=== PATIENT | female | born 1955 | race Caucasian/White ===

== ENCOUNTER 2020-02-25 15:26 | Outpatient (CLI) | payer MEDICARE, SELFPAY ==
--- NOTE | ~2020-02-25 | XR_ITS ---
XR lumbar spine 2-3V DATE: 02/25/2020 16:43 INDICATION: Low back pain radiating to right side for one month. No injury. TECHNIQUE: AP, lateral and coned lateral lumbosacral standing views COMPARISON: None FINDINGS: Diffuse osteopenia. There is [id number] anterior wedge compression fracture deformity of T11. There is mild degenerative disc disease at L1-2. There is mild degenerative spurring in the lower thoracic and lumbar spine. There is prominent degenerative disc disease and mild retrolisthesis at L2-3. There is moderately severe degenerative disc disease at L3-4. No lumbar spine fracture or bone destruction is evident. The lumbar pedicles are intact. The sacroiliac joints appear normal. IMPRESSION: [id number]-fljgynek T11 compression fracture, likely chronic Multilevel degenerative disc disease, most pronounced at L2-3 where there is mild retrolisthesis and at L3-4 Reviewed, dictated and finalized at location A. IMPRESSION: [id number] T11 compression fracture, likely chronic Multilevel degenerative disc disease, most pronounced at L2-3 where there is mi ld retrolisthesis and at L3-4
--- NOTE | ~2020-02-25 | XR_ITS ---
EXAMINATION: XR ribs RT 2V EXAM DATE: 02/25/2020 16:45 INDICATION: Swallowed bottle cap rating. Right lower rib pain. TECHNIQUE: Frontal projection of the upper right ribs, frontal projection of the lower right ribs, ob lique projection of the right ribs, without chest x-ray(s) for interpretation. Correlation is made to chest x-ray 12/15/2018. FINDINGS: There is no right rib cortical discontinuity, no evidence of acute fracture. No radiopaque foreign bodies identified aside from cholecystectomy clips. There are mild bony degenerative changes. IMPRESSION: No suspicious right rib findings. Reviewed, dictated and finalized at location G.
--- NOTE | ~2020-02-25 | XR_ITS ---
XR thoracic spine 3V DATE: 02/25/2020 16:43 INDICATION: Back pain radiating to right side TECHNIQUE: AP, lateral and swimmer views COMPARISON: None FINDINGS: There is mild anterolisthesis and moderate degenerative disease at approximately C4-5 and s evere degenerative disc disease at C5-6 and C6-7. There is diffuse osteopenia. There is mild to moderate anterior wedge compression fracture deformity, likely chronic, at T11. Othe rwise no fracture or bone destruction is evident. The thoracic pedicles are intact. No paraspinal sof t tissue thickening. Surgical clips overlie the right lower quadrant, likely due to cholecystectomy. IMPRESSION: Diffuse osteopenia Moderate moderate anterior wedge compression fracture deformity, likely chronic, at T11 Mild degenerative spurring of the thoracic spine Degenerative changes of the lower cervical spine Reviewed, dictated and finalized at location A. IMPRESSION: Diffuse osteopenia Moderate moderate anterior wedge compression fracture deformity, likely chronic , at T11 Mild degenerative spurring of the thoracic spine Degenerative changes of the lower cervical spine
== END 2020-02-25 15:27 | disposition home or self-care (01) ==
DX: M48.54XA Collapsed vertebra, not elsewhere classified, thoracic region, initial encounter for fracture (principal); M51.36 Other intervertebral disc degeneration, lumbar region; M85.88 Other specified disorders of bone density and structure, other site
CPT/HCPCS: 71100; 72072; 72100

== ENCOUNTER → 2020-08-24 10:03 | Outpatient (CLI) | payer MEDICARE, SELFPAY ==
[2020-08-24 14:02] LABS: Influenza Control Positive
[2020-08-25 16:27] LABS: SARS-CoV-2 RNA PCR Negative
== END ==
PROVIDERS: PCP Family Medicine; Visit Provider Nurse Practitioner Family
DX: Z20.822 Contact with and (suspected) exposure to COVID-19 (principal); R68.89 Other general symptoms and signs
CPT/HCPCS: 87804; C9803; U0003; U0005

== ENCOUNTER 2020-09-02 08:28 | Outpatient (CLI) | payer MEDICARE, SELFPAY ==
[2020-09-02 09:01] LABS: Basophils Absolute Auto 0.1 K/mm3 (0.0-0.1); Basophils Percent Auto 0.4 % (0.2-1.2); Eosinophils Absolute Auto 0.5 K/mm3 (0-0.3); Eosinophils Percent Auto 3.7 % (0-4.4); Hematocrit 43.9 % (37.0-47.0); Hemoglobin 14.4 g/dL (12.0-15.0); Immature Granulocyte Absolute 0.03 K/mm3 (0.00-0.031); Immature Granulocyte Percent A 0.2 % (0-0.5); Lymphocytes Absolute Auto 2.06 K/mm3 (0.9-3.2); Lymphocytes Percent Auto 16.6 % (18.3-44.2); Mean Corpuscular HGB Conc 32.8 g/dl (32-36); Mean Corpuscular Hemoglobin 30.2 pg (26-34); Mean Platelet Volume 9.9 fl (7.4-10.4); Monocytes Percent Auto 7.7 % (2.6-8.5); Neutrophils Absolute Auto 8.8 K/mm3 (1.3-6.7); Neutrophils Percent Auto 71.4 % (45.5-73.1); Platelet Count Result 375 k/mm3 (150-375); Red Blood Count 4.77 M/mm3 (4.2-5.4); White Blood Count 12.4 K/mm3 (4.5-10.0)
== END 2020-09-02 08:29 | disposition home or self-care (01) ==
PROVIDERS: PCP Family Medicine; Visit Provider Nurse Practitioner Family
DX: D72.829 Elevated white blood cell count, unspecified (principal)
CPT/HCPCS: 0001A; 36415; 85025; 91300

== ENCOUNTER 2020-09-02 14:48 | Outpatient (CLI) | payer MEDICARE, SELFPAY | END 2020-09-02 14:49 | disposition home or self-care (01) | LOC: ANHCOVIDVC 14:49 | PROVIDERS: PCP Family Medicine | DX: Z23 Encounter for immunization (principal) | CPT/HCPCS: 0001A; 91300 ==

== ENCOUNTER → 2020-11-09 06:44 | Outpatient (CLI) | payer MEDICARE, SELFPAY ==
[2020-11-10 17:40] LABS: SARS-CoV-2 RNA PCR Negative
== END ==
PROVIDERS: PCP Family Medicine; Visit Provider Nurse Practitioner Family
DX: R68.89 Other general symptoms and signs (principal); Z20.822 Contact with and (suspected) exposure to COVID-19
CPT/HCPCS: C9803; U0003; U0005

== ENCOUNTER → 2020-11-16 10:41 | Outpatient (CLI) | payer MEDICARE, SELFPAY ==
--- NOTE | ~2020-11-16 | XR_ITS ---
EXAMINATION: XR chest 2V DATE: 11/16/2020 10:55 INDICATION: Cough. TECHNIQUE: Frontal and lateral views of the chest were obtained. COMPARISON: Chest 2 views 12/15/2018 FINDINGS: The chest demonstrates clear lungs without pneumonia, pleural effusion, or pneumothorax. Th e heart size is normal. There is mild chronic anterior wedging of T11. There are surgical clips in th e abdomen. IMPRESSION: 1. No acute cardiopulmonary disease. Reviewed, dictated and finalized at location A.
== END ==
PROVIDERS: PCP Family Medicine; Visit Provider Nurse Practitioner Family
DX: R05 Cough (principal); R06.02 Shortness of breath
CPT/HCPCS: 71046

== ENCOUNTER → 2021-03-13 16:09 | Outpatient (CLI) | payer MEDICARE, SELFPAY ==
--- NOTE | ~2021-03-13 | XR_ITS ---
XR chest 2V DATE: 03/13/2021 16:27 INDICATION: Cough TECHNIQUE: 2 views COMPARISON: 11/16/2020 2 view chest FINDINGS: Heart size is normal. No hilar or mediastinal enlargement. No pulmonary infiltrate or conso lidation, pleural effusion or pulmonary vascular congestion or pneumothorax is detected. IMPRESSION: No active cardiopulmonary disease Reviewed, dictated and finalized at location B.
== END ==
PROVIDERS: PCP Family Medicine; Visit Provider Family Medicine
DX: R05 Cough (principal)
CPT/HCPCS: 71046

== ENCOUNTER 2021-04-04 10:20 | Emergency (ER) | payer MEDICARE, SELFPAY ==
--- NOTE | ~2021-04-04 | XR_ITS ---
EXAMINATION: XR chest 2V DATE: 04/04/2021 11:12 INDICATION: Asthma presenting with mouth numbness. TECHNIQUE: PA and lateral views of the chest were obtained. COMPARISON: Chest radiograph dated 03/13/2021 FINDINGS: The lungs remain clear with no focal airspace opacities, pulmonary edema, pleural effusion or pneumot horax. The cardiomediastinal silhouette is normal. Chronic lower thoracic compression fracture, likel y T11 with 20% anterior vertebral body height loss. Minimal anterior wedging at what is likely L1. Ch olecystectomy clips in right upper quadrant. IMPRESSION: 1. No acute cardiopulmonary disease. Reviewed, dictated and finalized at location A.
--- NOTE | ~2021-04-04 | CT_ITS ---
EXAMINATION: CTA brain carotid DATE: 04/04/2021 13:36 INDICATION: Headache. Left-sided mouth numbness. Cerebral vascular accident. TECHNIQUE: Computed tomographic angiography (CTA) of the head was performed without and with 100 mL O mnipaque-350 intravenous contrast. CTA of the neck was performed with intravenous contrast. Automated exposure control and iterative reconstruction technique were employed. The dose-length product was 1 740.23 mGy-cm. Maximum intensity projection and volume rendered 3D-reconstructions were created by radha neff technologist on a separate workstation. COMPARISON: None. FINDINGS: HEAD CTA: There is no intracranial hemorrhage, acute infarction, or abnormal intracranial mass lesion . There are scattered areas of low attenuation in the cerebral white matter. The ventricles are regine l in size. The paranasal sinuses are clear. The mastoid air cells are normal. The orbits are normal. Right vertebral artery is dominant. There is no significant stenosis of basilar artery or the posteri or cerebral arteries. The posterior communicating arteries are normal. There is no significant stenos is of the intracranial internal carotid arteries or anterior or middle cerebral arteries. Anterior co mmunicating artery is normal. There is no aneurysm. NECK CTA: The lung apices demonstrate mosaic attenuation, likely small airways disease. There are no pathologically enlarged lymph nodes. There is no significant stenosis of the vertebral arteries. Ther e is plaque in the proximal internal carotid arteries. There is 0% stenosis of the proximal right int ernal carotid artery relative to normal distal artery lumen diameter (NASCET criteria). There is 0% s tenosis of the proximal left internal carotid artery relative to normal distal artery lumen diameter. There is severe cervical spondylosis. IMPRESSION: 1. Mild nonspecific cerebral white matter disease, which likely represents chronic small vessel ische sharon disease. 2. No aneurysm or significant intracranial internal stenosis. 3. 0% stenosis of the proximal internal carotid arteries relative to normal distal artery lumen diame ters (NASCET criteria). Reviewed, dictated and finalized at location A. IMPRESSION: 1. Mild nonspecific cerebral white matter disease, which likely represents biomathematician andrew small vessel ischemic disease. 2. No aneurysm or significant intracranial internal stenosis. 3. 0% stenosis of the proximal internal carotid arteries relative to normal dis liz artery lumen diameters (NASCET criteria).
--- NOTE | 2021-04-04 10:26 | ECG_ITS ---
Measurements Intervals [place] Rate: 68 P: 19 [place]: 180 QRS: 20 QRSD: 92 T: 13 QT: 380 QTc: 407 Interpretive Statements SINUS RHYTHM LOW QRS VOLTAGE IN PRECORDIAL LEADS BASELINE ARTIFACT- I, II, III, AVR, AVL, AVF BORDERLINE ECG Electronically Signed On 04-04-2021 13:05:45 CDT by Oscar Sagastume D.O.
[2021-04-04 10:32] VITALS: BP 151/75; PULSE 75; RESP 20; TEMP 36.5; O2SAT 96
[2021-04-04 10:53] LABS: Basophils Absolute Auto 0.1 K/mm3 (0.0-0.1); Basophils Percent Auto 0.4 % (0.2-1.2); Eosinophils Absolute Auto 0.2 K/mm3 (0-0.3); Eosinophils Percent Auto 1.3 % (0-4.4); Hemoglobin 15.1 g/dL (12.0-15.0); Immature Granulocyte Percent A 0.6 % (0-0.5); Lymphocytes Absolute Auto 2.63 K/mm3 (0.9-3.2); Lymphocytes Percent Auto 15.4 % (18.3-44.2); Mean Corpuscular HGB Conc 32.1 g/dl (32-36); Mean Corpuscular Hemoglobin 30.5 pg (26-34); Mean Corpuscular Volume 94.9 fl (80-100); Mean Platelet Volume 9.9 fl (7.4-10.4); Monocytes Absolute Auto 1.1 K/mm3 (0.1-0.6); Monocytes Percent Auto 6.3 % (2.6-8.5); Platelet Count Result 350 k/mm3 (150-375); Red Blood Count 4.95 M/mm3 (4.2-5.4); Red Cell Distribution Width 13.1 % (11.5-14.5); White Blood Count 17.1 K/mm3 (4.5-10.0)
[2021-04-04 11:05] LABS: INR 0.9; Prothrombin Time 11.6 Seconds (11.1-14.7)
[2021-04-04 11:06] LABS: Partial Thromboplastin Time 24.2 SECONDS (22.3-36.8)
[2021-04-04 11:13] LABS: Anion Gap 9 mmol/L (8-16); Blood Urea Nitrogen 14 mg/dL (7-17); Calcium 9.9 mg/dL (8.4-10.2); Carbon Dioxide 30 mmol/L (22-30); Chloride 104 mmol/L (98-107); Estimated CRCL calculation 90 ml/min; Estimated Glomerular Filt Rate > 60; Glucose 150 mg/dL (65-110); Potassium 4.7 mmol/L (3.4-5.0); Sodium 143 mmol/L (137-145)
[2021-04-04 11:25] LABS: Troponin I < 0.012 ng/mL (0.000-0.034)
[2021-04-04 14:32] LABS: Add Urine Microscopic? YES; Appearance Urine Clear (Clear); Bilirubin Urine Negative (Negative); Blood Urine Negative (Negative); Color Urine Yellow (Yellow); Glucose Urine UA Negative (Negative); Ketones Urine Negative (Negative); Leukocyte Esterase Ur Negative LEU/UL (Negative); Mucus Urine Few /lpf; Nitrate Urine Negative (Negative); Protein Urine Negative (Negative); Squamous Epithelial Cell Urine Many /hpf (Few); Urobilinogen Urine Negative mg/dL (<2.0); WBC Urine 0-3 /hpf
[2021-04-04 14:34] LABS: Specific Grav Ur 1.054 (1.001-1.035)
--- NOTE | 2021-04-04 15:02 | ED.GENADULT ---
HPI - General Adult General Chief complaint: Neuro Symptoms/Deficit Stated complaint: back pain, numbness to mouth Time Seen by Provider: 04/04/21 12:48 Source: patient, RN notes reviewed and old records reviewed Mode of arrival: ambulatory Limitations: no limitations History of Present Illness HPI narrative: Patient is a 65-year-old female who presents for evaluation of posterior head pain noted as a shooting pain that is intermittent present for 1 week she also notes that she developed some numbness at the angle of the left mouth denies any other focal neurologic deficits or complaints does note history of cluster headaches patient presents nondistressed lives at home with her mother on arrival notes minimal to no pain Related Data Home Medications Medication Instructions Recorded Confirmed metoprolol tartrate 25 mg PO BID 05/23/19 03/13/21 montelukast [Singulair] 10 mg PO DAILY 05/23/19 03/13/21 telmisartan [Micardis] 80 mg PO DAILY 05/23/19 03/13/21 abatacept 50 mg/0.4 mL 1,000 mg SUBCUT MONTHLY ml 07/26/20 03/13/21 subcutaneous syringe amlodipine 5 mg tablet 5 mg PO BID 07/26/20 03/13/21 atorvastatin 10 mg tablet 10 mg PO DAILY 07/26/20 03/13/21 blood sugar diagnostic #10 ea 07/26/20 03/13/21 fluticasone propionate 110 1 puff INHALATION Q12H 07/26/20 03/13/21 mcg/actuation HFA aerosol inhaler furosemide 20 mg tablet 20 mg PO QAM 07/26/20 03/13/21 lancets #100 ea 07/26/20 03/13/21 Allergies Allergy/AdvReac Type Severity Reaction Status Date / Time loratadine AdvReac Diarrhea Verified 03/13/21 15:04 Antibiotic Allergy Unknown Unknown Uncoded 03/13/21 15:04 IVP dye Allergy Unknown Uncoded 03/13/21 15:04 Review of Systems Review of Systems: All systems reviewed & are unremarkable except as noted in HPI and below PMFSH Past Medical History Medical History Acid reflux Asthma Bereavement BMI greater than 40 Hypertension Prediabetes RA (rheumatoid arthritis) Seasonal allergies Surgical History Surgical History Ganglion cyst History of removal of ovarian cyst Hx of cholecystectomy Family History Family History Other Cerebrovascular accident Diabetes mellitus Heart problem Hypertension Social History Social History Alcohol intake: never Substance use: never Gender identity (if verbalized by the patient): Female Exam Narrative: GENERAL: Well-appearing, well-nourished, and in no acute distress. HEAD: Normocephalic, atraumatic. EYES: PERRLA and EOMI. ENT: Nares clear, no rhinorrhea or epistaxis. Mucous membranes moist. Oropharynx without tonsillar hypertrophy exudate or other lesions. Bilateral TMs pearly duque nonbulging NECK: Supple. No adenopathy or masses. No carotid bruits or JVD CHEST: Clear to auscultation. No respiratory distress. No wheezes rales or rhonchi HEART: Regular rate and rhythm. No murmur heard. Normal peripheral pulses. EXTREMITIES: Normal range of motion. No edema. SKIN: Warm, dry, no rash. NEURO: No focal deficits. Alert and oriented x3. Cranial nerves II through XII grossly intact. Normal speech and gait. No facial asymmetry motor and sensory intact and symmetrical in the extremities. Cerebellar intact PSYCH: Normal mood and affect. Course Course Emergency Course: Patient presented with headache for 1 week will be discharged home with outpatient follow-up notes that her white blood cell count is typically been around 15,000 she is also on steroids currently patient denies any other fever chills night sweats or other sources for illness no high risk changes otherwise in her evaluation which included CTA of the neck and head she will follow-up as instructed given strict reasons to return ABCs and vital signs intact and stable Vital Signs Vital
[2021-04-04 15:45] VITALS: BP 122/78; PULSE 70; RESP 16; O2SAT 97
== END 2021-04-04 15:45 | disposition home or self-care (01) ==
PROVIDERS: Emergency Medicine Emergency Medical Services; Emergency Provider Emergency Medicine; PCP Family Medicine
DX: R51.9 Headache, unspecified (principal); K21.9 Gastro-esophageal reflux disease without esophagitis; J45.909 Unspecified asthma, uncomplicated; I10 Essential (primary) hypertension; M06.9 Rheumatoid arthritis, unspecified; R73.03 Prediabetes; R94.31 Abnormal electrocardiogram [ECG] [EKG]; R90.82 White matter disease, unspecified
CPT/HCPCS: 36415; 70496; 70498; 71046; 80048; 81001; 84484; 85025; 85610; 85730; 93005; 99284; Q9967

== ENCOUNTER 2021-04-24 13:49 | Outpatient (CLI) | payer MEDICARE, SELFPAY ==
[2021-04-24 14:24] LABS: Basophils Absolute Auto 0.1 K/mm3 (0.0-0.1); Basophils Percent Auto 0.4 % (0.2-1.2); Eosinophils Absolute Auto 0.6 K/mm3 (0-0.3); Eosinophils Percent Auto 3.5 % (0-4.4); Hematocrit 43.5 % (37.0-47.0); Immature Granulocyte Absolute 0.06 K/mm3 (0.00-0.031); Immature Granulocyte Percent A 0.4 % (0-0.5); Lymphocytes Absolute Auto 2.31 K/mm3 (0.9-3.2); Lymphocytes Percent Auto 14.6 % (18.3-44.2); Mean Corpuscular HGB Conc 32.2 g/dl (32-36); Mean Corpuscular Hemoglobin 30.6 pg (26-34); Mean Platelet Volume 10.3 fl (7.4-10.4); Monocytes Absolute Auto 1.5 K/mm3 (0.1-0.6); Monocytes Percent Auto 9.2 % (2.6-8.5); Neutrophils Absolute Auto 11.4 K/mm3 (1.3-6.7); Neutrophils Percent Auto 71.9 % (45.5-73.1); Platelet Count Result 343 k/mm3 (150-375); Red Blood Count 4.58 M/mm3 (4.2-5.4); Red Cell Distribution Width 13.2 % (11.5-14.5); White Blood Count 15.8 K/mm3 (4.5-10.0)
== END 2021-04-24 13:50 | disposition home or self-care (01) ==
LOC: ANHLAB 13:52
PROVIDERS: PCP Family Medicine; Visit Provider Nurse Practitioner Family
DX: D72.829 Elevated white blood cell count, unspecified (principal)
CPT/HCPCS: 36415; 85025

== ENCOUNTER 2021-06-08 12:02 | Emergency (ER) | payer MEDICARE, SELFPAY ==
[2021-06-08 12:08] VITALS: BP 149/74; PULSE 65; RESP 20; TEMP 36.1; O2SAT 97
[2021-06-08 12:14] VITALS: BP 149/74; PULSE 65; RESP 20; TEMP 36.1; O2SAT 97
--- NOTE | 2021-06-08 12:54 | ED.ABDPAIN ---
HPI - Abdominal Pain General Chief Complaint: Abdominal Pain Stated Complaint: abd pain/Nausea Source: patient and RN notes reviewed Mode of arrival: ambulatory History of Present Illness HPI narrative: This is a 65-year-old female who presented to urgent care with complaints of 1 day of diarrhea that occurred approximately 3 days ago in nausea that occurred yesterday. Patient does not have any other symptoms. She did note that her abdomen is tend to diarrhea. The patient denies SOB, CP, palpitation, extremity numbness, lightheadedness, dizziness, constipation, diarrhea, chills, or fever. Patient instructed that if her abdomen becomes more painful she will need to proceed to the nearest ED for further diagnostic tests. Related Data Home Medications Medication Instructions Recorded Confirmed montelukast [Singulair] 10 mg PO DAILY 05/23/19 05/24/21 telmisartan [Micardis] 80 mg PO DAILY 05/23/19 05/24/21 abatacept 50 mg/0.4 mL 1,000 mg SUBCUT MONTHLY ml 07/26/20 05/24/21 subcutaneous syringe amlodipine 5 mg tablet 5 mg PO BID 07/26/20 05/24/21 blood sugar diagnostic #10 ea 07/26/20 05/24/21 furosemide 20 mg tablet 20 mg PO QAM 07/26/20 05/24/21 lancets #100 ea 07/26/20 05/24/21 metoprolol tartrate 25 mg tablet 50 mg PO BID tablet 04/10/21 05/24/21 abatacept (with maltose) 250 mg 1 ml IV MONTHLY ea 05/01/21 05/24/21 intravenous solution cholecalciferol (vitamin D3) 50 50 mcg PO DAILY 05/24/21 05/24/21 mcg (2,000 unit) chewable tablet fluticasone propionate 110 1 puff INHALATION Q12H 05/24/21 05/24/21 mcg/actuation HFA aerosol inhaler ibuprofen 200 mg tablet 200 mg PO Q6H PRN 05/24/21 05/24/21 Air Born Gummies 06/08/21 fluticasone furoate-vilanterol INHALATION 06/08/21 [Breo Ellipta] Allergies Allergy/AdvReac Type Severity Reaction Status Date / Time clindamycin Allergy Intermediate GERD Verified 05/24/21 10:40 loratadine AdvReac Diarrhea Verified 05/24/21 10:40 Antibiotic Allergy Unknown Unknown Uncoded 05/24/21 10:40 IVP dye Allergy Unknown Uncoded 05/24/21 10:40 Review of Systems Review of Systems: A 14 organ system Review of Systems was performed and pertinent positives included in the HPI, otherwise remaining ROS is negative. [facility] Past Medical History Medical History Acid reflux Asthma Bereavement BMI greater than 40 Hypertension Prediabetes RA (rheumatoid arthritis) Seasonal allergies Surgical History Surgical History Ganglion cyst History of removal of ovarian cyst Hx of cholecystectomy Family History Family History Other Cerebrovascular accident Diabetes mellitus Heart problem Hypertension Social History Social History Smoking status: Never smoker Second hand tobacco smoke exposure: No Alcohol intake: never Substance use: never Substance use type: does not use Gender identity (if verbalized by the patient): Female Exam Narrative: GENERAL: This is a well-nourished, well-developed patient, in no apparent distress. HEAD: normocephalic, atraumatic. EYES: PERRL. Sclera clear/white. Vision is grossly intact. EARS: External ears normal, auditory canals clear and without drainage, TMs normal without perforation. Hearing grossly intact. NOSE: External nose normal with no obvious nasal discharge, nares without redness, no rhinorrhea. THROAT: Mucous membranes moist, posterior pharynx clear. NECK: Neck supple, non-tender without lymphadenopathy, masses or thyromegaly. CARDIOVASCULAR: Regular rate and rhythm without murmurs, gallops, or rubs. RESPIRATORY: Clear to auscultation. Breath sounds equal bilaterally. No wheezes, rales, or rhonchi. GASTROINTESTINAL: Abdomen soft, non-tender, nondistended. Bowel sounds are active. No hepato-splenomegal
== END 2021-06-08 12:55 | disposition home or self-care (01) ==
PROVIDERS: Emergency Provider Nurse Practitioner; PCP Family Medicine
DX: K29.00 Acute gastritis without bleeding (principal); K21.9 Gastro-esophageal reflux disease without esophagitis; J45.909 Unspecified asthma, uncomplicated; I10 Essential (primary) hypertension; R73.03 Prediabetes; M06.9 Rheumatoid arthritis, unspecified
CPT/HCPCS: 99213; G0463

== ENCOUNTER → 2021-10-23 11:59 | Outpatient (CLI) | payer MEDICARE, SELFPAY ==
--- NOTE | ~2021-10-23 | XR_ITS ---
XR lumbar spine 2-3V DATE: 10/23/2021 13:11 INDICATION: Back pain TECHNIQUE: AP, lateral, coned lateral lumbosacral views COMPARISON: 02/25/2020 lumbar spine FINDINGS: Diffuse osteopenia. Mild thoracolumbar levoscoliosis. Stable moderate anterior wedge compression fracture deformity of T11 since 02/25/2020. There is degene rative disc disease at T11-12, T12-L1, L1-2, L2-3 and particularly L3-4. L4-5 and L5-S1 disc spaces a re well preserved. There is mild retrolisthesis at L2-3. There is degenerative change at the apophyseal joints in the mid and lower lumbar spine. The lumbar pedicles are intact. The sacroiliac joints appear normal. Status post cholecystectomy. IMPRESSION: Chronic T11 compression fracture deformity since 02/25/2020 Degenerative disc disease of the upper mid lumbar spine, most pronounced at L3-4, sparing L4-5 and L5 -S1, not appreciably changed since 02/25/2020. There is associated mild retrolisthesis at L2-3 Reviewed, dictated and finalized at location B. IMPRESSION: Chronic T11 compression fracture deformity since 02/25/2020 Degenerative disc disease of the upper mid lumbar spine, most pronounced at L3- 4, sparing L4-5 and L5-S1, not appreciably changed since 02/25/2020. There is as sociated mild retrolisthesis at L2-3
--- NOTE | ~2021-10-23 | XR_ITS ---
XR thoracic spine 3V DATE: 10/23/2021 13:10 INDICATION: Back pain TECHNIQUE: AP, lateral, swimmer views COMPARISON: 02/25/2020 thoracic spine FINDINGS: Stable mild to moderate anterior wedge compression fracture deformity at T11, present on 03/2020. No recent fracture, dislocation or bone destruction is evident. The thoracic pedicles are in tact. Prominent degenerative disc disease is noted in the lower cervical spine. Mild degenerative change of the thoracic spine. Diffuse osteopenia. IMPRESSION: Osteopenia Chronic mild to moderate T1 compression fracture deformity Reviewed, dictated and finalized at location B.
== END ==
PROVIDERS: PCP Physician Assistant Medical
DX: M54.9 Dorsalgia, unspecified (principal); M51.34 Other intervertebral disc degeneration, thoracic region; M51.36 Other intervertebral disc degeneration, lumbar region; M85.88 Other specified disorders of bone density and structure, other site
CPT/HCPCS: 72072; 72100

== ENCOUNTER → 2022-01-30 14:25 | Outpatient (CLI) | payer MEDICARE, SELFPAY ==
--- NOTE | ~2022-01-30 | XR_ITS ---
EXAMINATION: XR chest 2V 01/30/2022 14:52 INDICATION: Cough PROCEDURE: 2 view chest COMPARISON: Comparison to multiple prior studies sequentially, with oldest reviewed study dated 02/24. FINDINGS: The lungs are clear. The cardiomediastinal silhouette is within normal limits. There are no pleural effusions. There is no pneumothorax suspected. IMPRESSION: 1: NO ACUTE CARDIOPULMONARY DISEASE. Reviewed, dictated and finalized at location B.
== END ==
PROVIDERS: PCP Family Medicine; Visit Provider Nurse Practitioner Family
DX: R05.9 Cough, unspecified (principal); R06.02 Shortness of breath
CPT/HCPCS: 71046

== ENCOUNTER → 2022-06-14 13:30 | Outpatient (CLI) | payer MEDICARE, SELFPAY ==
--- NOTE | ~2022-06-14 | XR_ITS ---
EXAMINATION: XR hip LT 2V w AP pelvis INDICATION: Left hip pain TECHNIQUE: AP view of the pelvis and two views of the left hip are obtained. COMPARISON: None available FINDINGS: Bone alignment is normal. There is no fracture. There is mild osteoarthritis of the hips. IMPRESSION: 1. No acute osseous abnormality. Reviewed, dictated and finalized at location L. MACY OPERATIONS MANAGER
--- NOTE | ~2022-06-14 | XR_ITS ---
EXAMINATION: XR lumbar spine 2-3V DATE: 06/14/2022 14:04 INDICATION: Back and left hip pain TECHNIQUE: Anteroposterior and lateral views of the lumbar spine, and cone-down lateral view of the l umbosacral junction were obtained. COMPARISON: 10/23/2021 FINDINGS: There are 2 mm of retrolisthesis of L3 on L4. The lumbar vertebral body heights are maintai erlinda. There is moderate loss of intervertebral disc space height at T12-L1, L2-3, and L3-4. There is a chronic compression fracture of T11 without significant change. Small degenerative osteophytes proje ct from the anterior endplates of multiple vertebral bodies. There is severe facet joint osteoarthrit is at L5-S1. Surgical clips in the right upper quadrant are likely from prior cholecystectomy. IMPRESSION: 1. Moderate lumbar spondylosis without acute findings or significant interval change. Reviewed, dictated and finalized at location L. CART DRIVER IMPRESSION: 1. Moderate lumbar spondylosis without acute findings or significant interval c candace.
== END ==
PROVIDERS: PCP Family Medicine; Visit Provider Nurse Practitioner Family
DX: M47.896 Other spondylosis, lumbar region (principal); M25.552 Pain in left hip
CPT/HCPCS: 72100; 73502

== ENCOUNTER 2022-07-18 19:39 | Emergency (ER) | payer MEDICARE, SELFPAY ==
--- NOTE | ~2022-07-18 | XR_ITS ---
EXAMINATION: XR chest 2V DATE: 07/18/2022 20:33 INDICATION: Heart palpitations and shortness of breath TECHNIQUE: PA and lateral views of the chest are obtained. COMPARISON: 01/30/2022 FINDINGS: The lungs are free of acute opacities. No pleural effusion or pneumothorax. The cardiomedia stinal silhouette is normal. There is moderate thoracic spondylosis. Surgical clips in the right uppe r quadrant are likely from prior cholecystectomy. IMPRESSION: 1. No acute cardiopulmonary abnormality. Reviewed, dictated and finalized at location F. NESS LAWYER
--- NOTE | 2022-07-18 19:40 | ECG_ITS ---
Measurements Intervals [place] Rate: 87 P: 23 NE: 163 QRS: 16 QRSD: 92 T: 40 QT: 372 QTc: 449 Interpretive Statements SINUS RHYTHM WITH FREQUENT VENTRICULAR PREMATURE COMPLEXES IN A BIGEMINAL PATTERN LOW QRS VOLTAGE IN PRECORDIAL LEADS [QRS DEFLECTION < 1.0 mV IN CHEST LEADS] MINIMAL ST DEPRESSION [0.025+ mV ST DEPRESSION] ABNORMAL RHYTHM ECG COMPARED TO ECG 04/04/2021 10:39:53 ST (T WAVE) DEVIATION NOW PRESENT Electronically Signed On 07-19-2022 10:04:52 [employer] SUPERVISOR by Richie Crawford M.D.
[2022-07-18 19:51] VITALS: BP 170/68; PULSE 89; RESP 20; TEMP 36.8; O2SAT 100
[2022-07-18 19:56] VITALS: PULSE 87
[2022-07-18 20:20] LABS: Basophils Absolute Auto 0.1 K/mm3 (0.0-0.1); Basophils Percent Auto 0.4 % (0.2-1.2); Eosinophils Absolute Auto 0.8 K/mm3 (0-0.3); Eosinophils Percent Auto 4.7 % (0-4.4); Hematocrit 48.7 % (37.0-47.0); Hemoglobin 15.7 g/dL (12.0-15.0); Immature Granulocyte Absolute 0.07 K/mm3 (0.00-0.031); Immature Granulocyte Percent A 0.4 % (0-0.5); Lymphocytes Absolute Auto 3.27 K/mm3 (0.9-3.2); Lymphocytes Percent Auto 20.4 % (18.3-44.2); Mean Corpuscular HGB Conc 32.2 g/dl (32-36); Mean Corpuscular Hemoglobin 30.1 pg (26-34); Mean Corpuscular Volume 93.3 fl (80-100); Mean Platelet Volume 10.5 fl (7.4-10.4); Monocytes Absolute Auto 1.3 K/mm3 (0.1-0.6); Monocytes Percent Auto 7.9 % (2.6-8.5); Neutrophils Absolute Auto 10.6 K/mm3 (1.3-6.7); Neutrophils Percent Auto 66.2 % (45.5-73.1); Platelet Count Result 449 k/mm3 (150-375); Red Blood Count 5.22 M/mm3 (4.2-5.4); Red Cell Distribution Width 13.3 % (11.5-14.5)
[2022-07-18 20:31] LABS: Alanine Aminotransferase 33 U/L (6-35); Albumin Level 4.3 g/dL (3.5-5.1); Alkaline Phosphatase 144 U/L (38-126); Anion Gap 10 mmol/L (8-16); Aspartate Amino Transferase 32 U/L (14-36); Bilirubin,Total 0.5 mg/dL (0.2-1.3); Blood Urea Nitrogen 12 mg/dL (7-17); Calcium 9.4 mg/dL (8.4-10.2); Carbon Dioxide 28 mmol/L (22-30); Chloride 105 mmol/L (98-107); Estimated CRCL calculation 102 ml/min; Estimated Glomerular Filt Rate > 60; Glucose 154 mg/dL (65-110); Lipase 339 U/L (23-300); Potassium 3.8 mmol/L (3.4-5.0); Sodium 143 mmol/L (137-145)
[2022-07-18 20:42] LABS: Troponin I < 0.012 ng/mL (0.000-0.034)
[2022-07-18 20:56] LABS: Magnesium 2.1 mg/dL (1.6-2.3)
[2022-07-18 21:06] LABS: Prothrombin Time 12.4 Seconds (11.1-14.7)
[2022-07-18 21:07] LABS: Partial Thromboplastin Time 28.1 SECONDS (22.3-36.8)
--- NOTE | 2022-07-18 21:32 | ED.GENADULT ---
HPI - General Adult General Chief complaint: Chest Pain Stated complaint: Irregular HR Time Seen by Provider: 07/18/22 19:55 Source: patient, RN notes reviewed and old records reviewed Mode of arrival: ambulatory Limitations: no limitations History of Present Illness HPI narrative: This is a 66 year old female with history of frequent PVC , Rheumatoid arthritis who presents for evaluation of palpitations. She states she has been having sensation of fluttering in her chest this morning. She had some dizziness but denies chest pain. She also denies worsening shortness of breath than normal. She reports she was placed on Metoprolol some time ago for PVCS, and she continues to take it. She states a monitor recorded her heart rate from 30-70. She denies nausea, vomiting, diarrhea, cough or leg swelling. She denies history of PE/DVT. She denies abdominal pain to me. Related Data Home Medications Medication Instructions Recorded Confirmed montelukast 10 mg tablet 10 mg PO DAILY 05/23/19 06/06/22 (Singulair) telmisartan 80 mg tablet (Micardis) 80 mg PO DAILY 05/23/19 06/06/22 blood sugar diagnostic (Accu-Chek #10 ea 07/26/20 06/06/22 SmartView Test Strips) furosemide 20 mg tablet 20 mg PO QAM 07/26/20 06/06/22 metoprolol tartrate 25 mg tablet 50 mg PO BID 04/10/21 06/06/22 abatacept (with maltose) 250 mg 1 ml IV MONTHLY 05/01/21 06/06/22 intravenous solution (Orencia (with maltose)) fluticasone propionate 110 1 puff inhalation Q12H 05/24/21 06/06/22 mcg/actuation HFA aerosol inhaler (Flovent HFA) ibuprofen 200 mg tablet (Advil) 200 mg PO Q6H PRN 05/24/21 06/06/22 cholecalciferol (vitamin D3) 50 100 mcg PO DAILY 06/29/21 06/06/22 mcg (2,000 unit) chewable tablet potassium chloride 10 mEq 20 meq PO DAILY 12/20/21 06/06/22 tablet,extended release Allergies Allergy/AdvReac Type Severity Reaction Status Date / Time clindamycin Allergy Intermediate GERD Verified 06/06/22 07:28 loratadine AdvReac Diarrhea Verified 06/06/22 07:28 Antibiotic Allergy Unknown Unknown Uncoded 06/06/22 07:28 IVP dye Allergy Unknown Uncoded 06/06/22 07:28 Review of Systems Constitutional: Constitutional: Denies weakness Cardiovascular: Cardiovascular: Denies syncope, Denies rapid heart rate, Reports irregular heart rhythm, Denies leg edema, Denies dyspnea and Reports slow heart rate Respiratory: Respiratory: Denies chest congestion, Denies hemoptysis, Denies excessive phlegm production and Denies dyspnea Gastrointestinal: Gastrointestinal: Denies abdominal pain, Denies hematochezia, Denies diarrhea and Denies vomiting Genitourinary: Genitourinary: Denies hematuria and Denies dysuria Musculoskeletal: Musculoskeletal: Denies joint swelling, Denies loss of height and Denies muscle weakness Neurologic: Denies syncope, Denies focal weakness and Denies weakness PMFSH Past Medical History Medical History Acid reflux Asthma Bereavement BMI greater than 40 Hypertension Prediabetes RA (rheumatoid arthritis) Seasonal allergies Surgical History Surgical History Ganglion cyst History of removal of ovarian cyst Hx of cholecystectomy Family History Family History Father Cerebrovascular accident Mother Kidney failure CHF (congestive heart failure) Sibling Blood clot in vein Sibling Kidney failure Other Diabetes mellitus Heart problem Hypertension Social History Social History Smoking status: Never smoker Second hand tobacco smoke exposure: Yes Alcohol intake: never Substance use: never Substance use type: does not use Lack of Transportation: No Lack of Food: Never True Current Housing: I Have Housing Concerned About Future Housing: No Difficult
[2022-07-18 21:40] VITALS: BP 164/56; PULSE 77; RESP 19; O2SAT 98
== END 2022-07-18 21:47 | disposition home or self-care (01) ==
PROVIDERS: Emergency Provider General Practice; PCP Family Medicine
DX: R00.2 Palpitations (principal); I49.3 Ventricular premature depolarization; J45.909 Unspecified asthma, uncomplicated; I10 Essential (primary) hypertension
CPT/HCPCS: 36415; 71046; 80053; 83690; 83735; 84484; 85025; 85610; 85730; 93005; 99284

== ENCOUNTER → 2023-01-23 10:45 | Outpatient (CLI) | payer MEDICARE, SELFPAY ==
--- NOTE | ~2023-01-23 | US_ITS ---
EXAMINATION: US soft tissue LE DATE: 01/23/2023 11:02 INDICATION: Palpable area at the left upper thigh TECHNIQUE: Multiple grayscale and Doppler ultrasound images of the region of concern at the left uppe r thigh were obtained. COMPARISON: None FINDINGS: At the region of concern is a 2.1 x 1.4 x 0.9 cm mass with lobular margins which is minimally hypoech oic to the surrounding subcutaneous fat with otherwise similar appearance and echotexture as the surr ounding fat. No other abnormal masses or fluid collections identified. IMPRESSION: 1. Nonspecific 2.1 x 1.4 x 0.9 cm subcutaneous mass with appearance most consistent with and statisti brandon most likely to represent a lipoma. Reviewed, dictated and finalized at location B. IMPRESSION: 1. Nonspecific 2.1 x 1.4 x 0.9 cm subcutaneous mass with appearance most consis tent with and statistically most likely to represent a lipoma.
== END ==
PROVIDERS: PCP Family Medicine
DX: D17.24 Benign lipomatous neoplasm of skin and subcutaneous tissue of left leg (principal); R22.42 Localized swelling, mass and lump, left lower limb
CPT/HCPCS: 76882

== ENCOUNTER → 2023-06-05 11:13 | Outpatient (CLI) | payer MEDICARE, SELFPAY ==
--- NOTE | ~2023-06-05 | XR_ITS ---
AP and lateral views of the left hip Clinical history: Pain Findings: No acute fracture or dislocation is seen. Osseous alignment is anatomic. Left hip joint spa ce is preserved. Soft tissues are unremarkable. Impression: No significant abnormality is seen. Reviewed, dictated and finalized at location . S ASSEMBLER Impression: No significant abnormality is seen.
== END ==
PROVIDERS: PCP Family Medicine
DX: M25.552 Pain in left hip (principal)
CPT/HCPCS: 73502

== ENCOUNTER 2023-09-20 08:50 | Emergency (ER) | payer MEDICARE, SELFPAY ==
--- NOTE | ~2023-09-20 | XR_ITS ---
EXAMINATION: XR forearm LT 2V DATE: 09/20/2023 10:07 INDICATION: Left wrist pain. Fall. TECHNIQUE: 2 views of left forearm were obtained. COMPARISON: None. FINDINGS: There is a comminuted fracture of distal radius with involvement of the distal articular mehta rface and distal radioulnar joint. The main distal fracture fragment demonstrates impaction and dorsa l angulation. There is 16 degrees dorsal tilt of the distal articular surface. There is an avulsion f racture of the ulnar styloid. Joint spaces are normal. No elbow joint effusion. IMPRESSION: 1. Comminuted fracture of distal radius. 2. Avulsion fracture of the ulnar styloid. Reviewed, dictated and finalized at location A.
[2023-09-20 09:08] VITALS: BP 140/70; PULSE 58; RESP 18; TEMP 36.2; O2SAT 97
--- NOTE | 2023-09-20 12:25 | ED.GENADULT ---
HPI - General Adult General Chief complaint: Extremity Injury, Upper Stated complaint: wrist injury Time Seen by Provider: 09/20/23 11:52 History of Present Illness HPI narrative: This is a 68-year-old female presenting with chief complaint of wrist pain. Patient tripped over a set of steps she has leading up to her bed. She landed on outstretched wrist. She has been having some pain in the wrist. No numbness tingling or weakness. No other injuries. no loss of consciousness. Related Data Home Medications Medication Instructions Recorded Confirmed montelukast 10 mg tablet 10 mg PO DAILY 05/23/19 08/15/23 (Singulair) telmisartan 80 mg tablet (Micardis) 80 mg PO DAILY 05/23/19 08/15/23 blood sugar diagnostic (Accu-Chek #10 ea 07/26/20 08/15/23 SmartView Test Strips) furosemide 20 mg tablet 20 mg PO QAM 07/26/20 08/15/23 metoprolol tartrate 25 mg tablet 50 mg PO BID 04/10/21 08/15/23 abatacept (with maltose) 250 mg 1 ml IV MONTHLY 05/01/21 08/15/23 intravenous solution (Orencia (with maltose)) fluticasone propionate 110 1 puff inhalation Q12H 05/24/21 08/15/23 mcg/actuation HFA aerosol inhaler (Flovent HFA) ibuprofen 200 mg tablet (Advil) 200 mg PO Q6H PRN 05/24/21 08/15/23 cholecalciferol (vitamin D3) 50 100 mcg PO DAILY 06/29/21 08/15/23 mcg (2,000 unit) chewable tablet potassium chloride 10 mEq 20 meq PO DAILY 12/20/21 08/15/23 tablet,extended release Allergies Allergy/AdvReac Type Severity Reaction Status Date / Time clindamycin Allergy Intermediate GERD Verified 08/15/23 10:51 loratadine AdvReac Diarrhea Verified 08/15/23 10:51 Antibiotic Allergy Unknown Unknown Uncoded 08/15/23 10:51 IVP dye Allergy Unknown Uncoded 08/15/23 10:51 PMFSH Past Medical History Medical History Acid reflux Asthma Bereavement BMI 40.0-44.9, adult BMI greater than 40 Bronchitis Hypertension Prediabetes RA (rheumatoid arthritis) Seasonal allergies Surgical History Surgical History Ganglion cyst History of removal of ovarian cyst Hx of cholecystectomy Family History Family History Father Cerebrovascular accident Heart disease Mother Kidney failure CHF (congestive heart failure) Sibling Blood clot in vein Sibling Kidney failure Other Diabetes mellitus Heart problem Hypertension Social History Social History (Updated 08/15/23 @ 10:50 by Eveyln Doherty [facility]) Smoking status: Never smoker Second hand tobacco smoke exposure: Yes Alcohol intake: never Substance use: never Substance use type: does not use Do You Feel Safe in your Home?: Yes Lack of Transportation: No Lack of Food: Never True Current Housing: I Have Housing Concerned About Future Housing: No Difficulty Paying Gas/Electric Bills: No Difficulty Paying for Meds: No Currently Unemployed: No Education: Associate Degree Difficulty w/ Childcare or Family Care: No Living arrangements: with family Occupation/Education: retired 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 Head: atraumatic. EYES: EOMI, NOSE: Atraumatic NECK: Trachea midline RESPIRATORY: No increased rate of breathing CARDIOVASCULAR: RRR, ABDOMINAL: Non-distended MUSCULOSKELETAl: Focal exam of the left wrist revealed tenderness over the distal radius and ulna. No significant swelling present. Applied Psychology Professor strength intact, cap refill less than 2 seconds. No anatomic snuffbox tenderness. NEURO: Alert. Moving 4/4 extremities SKIN:: Warm, dry. Normal color PSYCHIATRIC: Normal affect Course Vital Signs Vital signs: Vital Signs Temperature 97.2 F L 09/20/23 09:08 Pulse Rate 58 L 09/20/23 09:08 Respiratory
[2023-09-20] MEDS: ACETAMINOPHEN 500 MG TABLET 1000 MG PO (12:38)
[2023-09-20] MEDS: IBUPROFEN 400 MG TABLET 800 MG PO (12:39)
[2023-09-20 13:05] VITALS: BP 134/79; PULSE 61; RESP 19; O2SAT 99
== END 2023-09-20 13:08 | disposition home or self-care (01) ==
PROVIDERS: Emergency Provider Emergency Medicine; PCP Family Medicine
DX: S52.502A Unspecified fracture of the lower end of left radius, initial encounter for closed fracture (principal); W01.0XXA Fall on same level from slipping, tripping and stumbling without subsequent striking against object, initial encounter; I10 Essential (primary) hypertension; J45.909 Unspecified asthma, uncomplicated; M06.9 Rheumatoid arthritis, unspecified; R73.03 Prediabetes
CPT/HCPCS: 29125; 73090; 99284; A9270

== ENCOUNTER 2023-10-25 10:00 | Outpatient (CLI) | payer MEDICARE, SELFPAY ==
--- NOTE | ~2023-10-25 | US_ITS ---
EXAMINATION: US venous doppler [facility] DATE: 10/25/2023 10:45 INDICATION: Left lower limb swelling. TECHNIQUE: Grayscale ultrasound images without and with compression and Doppler ultrasound images of the bilateral lower extremity veins were obtained. COMPARISON: None. FINDINGS: The visualized portions of right common femoral vein, profunda (deep) femoral vein, femoral vein, pop liteal vein, peroneal veins, posterior tibial veins, and greater saphenous vein outflow are patent. The visualized portions of left common femoral vein, profunda femoral vein, femoral vein, popliteal v ein, peroneal veins, posterior tibial veins, and greater saphenous vein outflow are patent. IMPRESSION: 1. No deep venous thrombosis. Reviewed, dictated and finalized at location A.
== END 2023-10-25 10:01 | disposition home or self-care (01) ==
LOC: ANHIMG 10:01
PROVIDERS: PCP Family Medicine; Visit Provider Nurse Practitioner Family
DX: R22.42 Localized swelling, mass and lump, left lower limb (principal)
CPT/HCPCS: 93970

== ENCOUNTER 2023-12-16 08:41 | Emergency (ER) | payer MEDICARE, SELFPAY ==
[2023-12-16] VITALS (12 sets, daily range): BP systolic 126–149; BP diastolic 61–97; PULSE 63–80; RESP 13–23; TEMP 36.6; O2SAT 97–100
--- NOTE | ~2023-12-16 | CT_ITS ---
EXAMINATION: CT chest abdomen pelvis wo con DATE: 12/16/2023 10:18 INDICATION: Left chest and abdominal pain. Fall. TECHNIQUE: Computed tomography (CT) of the chest, abdomen, and pelvis was performed without intraveno us contrast. Automated exposure control and iterative reconstruction technique were employed. The dos e-length product was 1796.84 mGy-cm. COMPARISON: None FINDINGS: CHEST CT: There is mild bronchiectasis in the lungs with a lower lung predominance. There are subpleural bands in the lower lobes. There is mild atelectasis bilaterally. No pleural effusion. The heart size is nor mal. There are coronary artery calcifications. No pericardial effusion. The central pulmonary arterie s are enlarged, consistent with pulmonary arterial hypertension. There are acute fractures of left 6t h-8th ribs. There is a chronic compression fracture of T11. There is mild thoracic spondylosis. ABDOMEN/PELVIS CT: The liver and spleen are normal. There are changes of cholecystectomy. The pancreas and adrenal gland s are normal. There is an 8 mm cyst in right kidney. There is a 3 mm stone in left kidney. There is d iverticulosis of the colon without evidence of diverticulitis. There are no dilated loops of bowel. T he appendix is not visualized. There are no pathologically enlarged lymph nodes. There is no free int raperitoneal fluid. There is prominent fat in the inguinal canals that may be hernias. There is sever e lumbar spondylosis. IMPRESSION: 1. Acute fractures of left sixth-eighth ribs. Reviewed, dictated and finalized at location A.
--- NOTE | ~2023-12-16 | XR_ITS ---
XR ribs LT 2V w CXR 2V Ordering provider: Genesis Ohara PA-C History: . fall ,L rib pain . Comparison: May 17 2023 FINDINGS: BONES: No acute rib fracture. MEDIASTINUM: The cardiac silhouette is not enlarged. LUNGS: No infiltrates, effusions or pneumothorax. OTHER: No free air under the diaphragm. IMPRESSION: 1. No acute osseous abnormality left ribs and chest. ( 2. No acute cardiopulmonary findings. Reviewed, dictated and finalized at location A.
--- NOTE | 2023-12-16 09:41 | ED.FALL ---
HPI - Fall General Chief Complaint: Fall Stated Complaint: abd pain Time Seen by Provider: 12/16/23 08:54 Source: patient Mode of arrival: ambulatory Limitations: no limitations History of Present Illness HPI Narrative: Patient is a 68 y/o female who presents to the ED with c/o a fall. patient reports she was carrying a flag outside her house when it flew into to her face, causing her to trip over a flower pot. She fell forward onto her knees, then onto her abdomen/chest. She did not hit her head or lose consciousness she is not on any blood thinners. She reports having pain to her left-sided abdomen/ chest/ midsternal chest. She reports having pain with deep breath, denies feeling short of breath. Denies dizziness, lightheadedness, nausea, vomiting. Denies significant knee pain. Has been ambulatory since the fall. Related Data Home Medications Medication Instructions Recorded Confirmed telmisartan 80 mg tablet (Micardis) 80 mg PO DAILY 05/23/19 10/25/23 blood sugar diagnostic (Accu-Chek #10 ea 07/26/20 10/25/23 SmartView Test Strips) furosemide 20 mg tablet 20 mg PO QAM 07/26/20 10/25/23 abatacept (with maltose) 250 mg 1 ml IV MONTHLY 05/01/21 10/25/23 intravenous solution (Orencia (with maltose)) fluticasone propionate 110 1 puff inhalation Q12H 05/24/21 10/25/23 mcg/actuation HFA aerosol inhaler (Flovent HFA) ibuprofen 200 mg tablet (Advil) 200 mg PO Q6H PRN 05/24/21 10/25/23 cholecalciferol (vitamin D3) 50 100 mcg PO DAILY 06/29/21 10/25/23 mcg (2,000 unit) chewable tablet potassium chloride 10 mEq 20 meq PO DAILY 12/20/21 10/25/23 tablet,extended release Allergies Allergy/AdvReac Type Severity Reaction Status Date / Time clindamycin Allergy Intermediate GERD Verified 12/16/23 08:50 atorvastatin Allergy Mild Muscle Pain Verified 12/16/23 08:50 loratadine AdvReac Diarrhea Verified 12/16/23 08:50 Antibiotic Allergy Unknown Unknown Uncoded 11/20/23 08:18 IVP dye Allergy Unknown Uncoded 11/20/23 08:18 Review of Systems Review of Systems: CONSTITUTIONAL: Denies fever, chills, or sweats. CARDIOVASCULAR: See HPI. RESPIRATORY: See HPI. GASTROINTESTINAL: See HPI. GENITOURINARY: Denies dysuria or hematuria. MUSCULOSKELETAL: See HPI. NEUROLOGIC: Denies HI, LOC, headache, dizziness, numbness, or weakness. All systems reviewed & are unremarkable except as noted in HPI and below PMFSH Past Medical History Medical History Acid reflux Asthma Bereavement Bronchitis Diabetes Hypertension Prediabetes RA (rheumatoid arthritis) Screening for colon cancer Seasonal allergies Shortness of breath Surgical History Surgical History Ganglion cyst History of removal of ovarian cyst Hx of cholecystectomy Family History Family History Father Cerebrovascular accident Heart disease Mother Kidney failure CHF (congestive heart failure) Sibling Blood clot in vein Sibling Kidney failure Other Diabetes mellitus Heart problem Hypertension Social History Social History Smoking status: Never smoker Second hand tobacco smoke exposure: Yes Alcohol intake: never Substance use: never Substance use type: does not use Do You Feel Safe in your Home?: Yes Lack of Transportation: No Lack of Food: Never True Current Housing: I Have Housing Concerned About Future Housing: No Difficulty Paying Gas/Electric Bills: No Difficulty Paying for Meds: No Currently Unemployed: No Education: Associate Degree Difficulty w/ Childcare or Family Care: No Living arrangements: with family Occupation/Education: retired 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
[2023-12-16] MEDS: ACETAMINOPHEN 500 MG TABLET 1000 MG PO (09:44)
[2023-12-16] MEDS: KETOROLAC 30 MG/ML VIAL (*BKC) IM (11:05)
[2023-12-16] MEDS: traMADol HCL (*CRX) 50 MG TABLET PO (11:06)
== END 2023-12-16 11:30 | disposition home or self-care (01) ==
PROVIDERS: Emergency Provider Physician Assistant; PCP Family Medicine
DX: S22.42XA Multiple fractures of ribs, left side, initial encounter for closed fracture (principal); E11.9 Type 2 diabetes mellitus without complications; I10 Essential (primary) hypertension; W01.0XXA Fall on same level from slipping, tripping and stumbling without subsequent striking against object, initial encounter
CPT/HCPCS: 71046; 71100; 71250; 74176; 96372; 99284; A9270; J1885

== ENCOUNTER 2024-02-17 01:49 | Emergency (ER) | payer MEDICARE, SELFPAY ==
[2024-02-17 02:01] VITALS: BP 142/74; PULSE 72; RESP 16; TEMP 36.6; O2SAT 100
--- NOTE | 2024-02-17 02:55 | ED.GENADULT ---
HPI - General Adult General Chief complaint: Unspecified Stated complaint: high blood pressure Time Seen by Provider: 02/17/24 01:56 History of Present Illness HPI narrative: this is a 68-year-old female history of hypertension presenting for elevated blood pressures. Patient took her blood pressures at home and they were elevated higher than usual. She then took her blood pressure medications. The next morning when she woke up blood pressure was still high and this made her anxious. She came to the ED for evaluation. Patient's blood pressures are currently normal and she is asymptomatic. Related Data Home Medications Medication Instructions Recorded Confirmed abatacept (with maltose) 250 mg 1 ml IV MONTHLY 05/01/21 12/18/23 intravenous solution (Orencia (with maltose)) cholecalciferol (vitamin D3) 50 100 mcg PO DAILY 06/29/21 12/18/23 mcg (2,000 unit) chewable tablet potassium chloride 10 mEq 20 meq PO DAILY 12/20/21 12/18/23 tablet,extended release Allergies Allergy/AdvReac Type Severity Reaction Status Date / Time clindamycin Allergy Intermediate GERD Verified 02/17/24 02:05 atorvastatin Allergy Mild Muscle Pain Verified 02/17/24 02:05 loratadine AdvReac Diarrhea Verified 02/17/24 02:05 Antibiotic Allergy Unknown Unknown Uncoded 02/17/24 02:05 IVP dye Allergy Unknown Uncoded 02/17/24 02:05 PMFSH Past Medical History Medical History Acid reflux Asthma Bereavement Bronchitis Diabetes Hypertension Prediabetes RA (rheumatoid arthritis) Screening for colon cancer Seasonal allergies Shortness of breath Surgical History Surgical History Ganglion cyst History of removal of ovarian cyst Hx of cholecystectomy Family History Family History Father Cerebrovascular accident Heart disease Mother Kidney failure CHF (congestive heart failure) Sibling Blood clot in vein Sibling Kidney failure Other Diabetes mellitus Heart problem Hypertension Social History Social History Smoking status: Never smoker Second hand tobacco smoke exposure: Yes Alcohol intake: never Substance use: never Substance use type: does not use Do You Feel Safe in your Home?: Yes Lack of Transportation: No Lack of Food: Never True Current Housing: I Have Housing Concerned About Future Housing: No Difficulty Paying Gas/Electric Bills: No Difficulty Paying for Meds: No Currently Unemployed: No Education: Associate Degree Difficulty w/ Childcare or Family Care: No Living arrangements: with family Occupation/Education: retired 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 Head: atraumatic. EYES: EOMI, NOSE: Atraumatic NECK: Trachea midline RESPIRATORY: No increased rate of breathing , clear to auscultation CARDIOVASCULAR: RRR, no peripheral edema ABDOMINAL: Non-distended MUSCULOSKELETAl: No obvious deformities NEURO: Alert. Cranial nerves 2-12 grossly intact. Sensation light touch, motor function cerebellar function intact for 4 extremities. Gait exam was normal. SKIN:: Warm, dry. Normal color PSYCHIATRIC: Normal affect Course Vital Signs Vital signs: Vital Signs Temperature 97.8 F 02/17/24 02:01 Pulse Rate 72 02/17/24 02:01 Respiratory Rate 16 02/17/24 02:01 Blood Pressure 142/74 H 02/17/24 02:01 Pulse Oximetry 100 02/17/24 02:01 Oxygen Delivery Room Air 02/17/24 02:01 Temperature 97.8 F 02/17/24 02:01 Pulse Rate 72 02/17/24 02:01 Respiratory Rate 16 02/17/24 02:01 Blood Pressure 142/74 H 02/17/24 02:01 Pulse Oximetry 100 02/17/24 02:01 Oxygen Delivery Room Air
[2024-02-17 03:12] VITALS: BP 124/82; PULSE 76; RESP 15; O2SAT 100
== END 2024-02-17 03:13 | disposition home or self-care (01) ==
PROVIDERS: Emergency Provider Emergency Medicine; PCP Family Medicine
DX: I10 Essential (primary) hypertension (principal); J45.909 Unspecified asthma, uncomplicated; E11.9 Type 2 diabetes mellitus without complications; K21.9 Gastro-esophageal reflux disease without esophagitis; M06.9 Rheumatoid arthritis, unspecified; Z90.49 Acquired absence of other specified parts of digestive tract; Z79.899 Other long term (current) drug therapy
CPT/HCPCS: 99281

== ENCOUNTER 2024-10-21 14:30 | Outpatient (RCR) | payer MEDICARE, SELFPAY | END 2024-11-09 23:59 | disposition home or self-care (01) | LOC: ANHDMC 14:30 | PROVIDERS: PCP Family Medicine; Visit Provider Family Medicine | DX: E11.65 Type 2 diabetes mellitus with hyperglycemia (principal); Z71.89 Other specified counseling | CPT/HCPCS: G0108; G0109 ==

== ENCOUNTER 2025-03-05 21:53 | Emergency (ER) | payer MEDICARE, SELFPAY ==
[2025-03-05 21:58] VITALS: BP 148/63; PULSE 72; RESP 17; TEMP 36.6; O2SAT 99
[2025-03-06 00:49] LABS: Hematocrit 41.5 % (37.0-47.0); Hemoglobin 13.5 g/dL (12.0-15.0); Immature Granulocyte Percent A 0.2 % (0-0.5); Lymphocytes Absolute Auto 1.92 K/mm3 (0.9-3.2); Mean Corpuscular HGB Conc 32.5 g/dl (32-36); Mean Corpuscular Hemoglobin 30.6 pg (26-34); Mean Corpuscular Volume 94.1 fl (80-100); Nucleated Red Blood Cells Absolute Auto 0.000 K/mm3 (0.0-0.012); Nucleated Red Blood Cells Perc 0.0 % (0.0-0.2); Platelet Count Result 281 k/mm3 (150-375); Red Blood Count 4.41 M/mm3 (4.2-5.4); White Blood Count 14.7 K/mm3 (4.5-10.0)
--- NOTE | 2025-03-06 00:59 | ED_ITS ---
HPI - General Adult General Chief complaint: Wound/Laceration Stated complaint: lump to right thigh Time Seen by Provider: 03/05/25 23:52 History of Present Illness HPI narrative: Earlier this evening patient noticed a painful lump/bruise to her R lateral leg; she is worried about a blood clot. Denies any recent injuries; no history of blood clots, no chest pain or trouble breathing. Related Data Home Medications ?Medication ?Instructions ?Recorded ?Confirmed ?Last Taken ?Type abatacept (with maltose) 250 mg 1 ml IV MONTHLY 11/19/24 Unknown History intravenous solution (Orencia (with maltose)) cholecalciferol (vitamin D3) 50 100 mcg PO DAILY 06/2911/19/24 Unknown History mcg (2,000 unit) chewable tablet ascorbic acid (vitamin C) 500 mg mg PO .qd 02/25/24 Unknown History capsule Allergies Allergy/AdvReac Type Severity Reaction Status Date / Time clindamycin Allergy Intermediate GERD Verified 12/23/24 07:48 Iodinated Contrast Media Allergy Intermediate Rash Verified 12/23/24 07:48 atorvastatin Allergy Mild Muscle Pain Verified 12/23/24 07:48 loratadine AdvReac Diarrhea Verified 12/23/24 07:48 Review of Systems 2 Review of Systems: All systems reviewed & are unremarkable except as noted in HPI and below PMFSH Past Medical History Medical History (Updated 03/06/25 @ 01:34 by Divine Ramirez MD) Screening for breast cancer Alopecia Elevated liver enzymes Microalbuminuria Diabetes Bronchitis Screening for colon cancer Shortness of breath Bereavement Hypertension Acid reflux Prediabetes Asthma Seasonal allergies RA (rheumatoid arthritis) Surgical History Surgical History Ganglion cyst Hx of cholecystectomy History of removal of ovarian cyst Family History Family History Father Cerebrovascular accident Heart disease Mother Kidney failure CHF (congestive heart failure) Sibling Blood clot in vein Sibling Kidney failure Other Diabetes mellitus Heart problem Hypertension Social History Social History Smoking status: Never smoker Second hand tobacco smoke exposure: Yes Alcohol intake: never Substance use: never Substance use type: does not use Do You Feel Safe in your Home?: Yes Lack of Transportation: No Lack of Food: Never True Current Housing: I Have Housing Concerned About Future Housing: No Difficulty Paying Gas/Electric Bills: No Difficulty Paying for Meds: No Currently Unemployed: No Education: Associate Degree Difficulty w/ Childcare or Family Care: No Living arrangements: with family Occupation/Education: retired 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 EYES: EOMI, conjunctiva normal ENT: Hearing grossly intact LUNGS: Nonlabored breathing. HEART: [Regular rate and rhythm] ABD: [Soft], [nontender to palpation] EXT: Normal range of motion, no swelling to either extremity SKIN: Varicose veins, on the right lateral thigh there does appear to be a varicose vein with an area of possible hematoma, slightly tender to the touch NEURO: [Alert and oriented x 3. No gross focal sensory or strength deficits.] PSYCH: Normal affect Course Vital Signs Vital signs: Vital Signs Temperature 97.8 F 03/05/25 21:58 Pulse Rate 72 03/05/25 21:58 Respiratory Rate 17 03/05/25 21:58 Blood Pressure 148/63 H 03/05/25 21:58 Pulse Oximetry 99 03/05/25 21:58 Temperature 97.8 F 03/05/25 21:58 Pulse Rate 68 03/06/25 01:43 Respiratory Rate 18 03/06/25 01:43 Blood Pressure 132/78 03/06/25 01:43 Pulse Oximetry 97 03/06/25 01:43 Medical Decision Making [facility] Narrative Medical decision making narrative: Earlier this evening patient noticed a painful lump/bruise to her R lateral leg; she is worried about a blood clot. Denies any recent injuries; no history of blood clots, no chest pain or trouble breathing. Patient well-appearing here, she does have any swelling to either leg, she does have an area that appears like a hematoma around her varicose vein to the right lateral leg that is slightly tender to touch, I did discuss with patient unfortunately we do not have ultrasound currently to rule out a DVT, but I can not obtain blood work to help guide the decision. Dinorah-dimer is negative, overall have very low suspicion for DVT, discussed this with the patient, she feels better after an ice pack, I suspect most likely a hematoma, instructed patient to use ice and elevate the next few days, and she will follow up with her primary care doctor on Saturday with strict return precautions. Patient agreeable to plan Vital Signs Vital Signs: Vital Signs Temperature 97.8 F 03/05/25 21:58 Pulse Rate 72 03/05/25 21:58 Respiratory Rate 17 03/05/25 21:58 Blood Pressure 148/63 H 03/05/25 21:58 Pulse Oximetry 99 03/05/25 21:58 Temperature 97.8 F 03/05/25 21:58 Pulse Rate 68 03/06/25 01:43 Respiratory Rate 18 03/06/25 01:43 Blood Pressure 132/78 03/06/25 01:43 Pulse Oximetry 97 03/06/25 01:43 Lab Data 03/06/25 00:43 03/06/25 00:43 Labs: Lab Results 03/06/25 Range/Units 00:43 WBC 14.7 H (4.5-10.0) K/mm3 RBC 4.41 (4.2-5.4) M/mm3 Hgb 13.5 (12.0-15.0) g/dL Hct 41.5 (37.0-47.0) % MCV 94.1 (80-100) fl MCH 30.6 (26-34) pg MCHC 32.5 (32-36) g/dl RDW 12.9 (11.5-14.5) % Plt Count 281 (150-375) k/mm3 MPV 10.6 H (7.4-10.4) fl Immature Gran % (Auto) 0.2 (0-0.5) % Neut % (Auto) 74.8 H (45.5-73.1) % Lymph % (Auto) 13.0 L (18.3-44.2) % [place] % (Auto) 7.1 (2.6-8.5) % Eos % (Auto) 4.5 H (0-4.4) % Baso % (Auto) 0.4 (0.2-1.2) % Lymph # (Auto) 1.92 (0.9-3.2) K/mm3 [place] # (Auto) 1.1 H (0.1-0.6) K/mm3 Eos # (Auto) 0.7 H (0-0.3) K/mm3 Baso # (Auto) 0.1 (0.0-0.1) K/mm3 Abs Immat Gran (auto) 0.03 (0.00-0.031) K/mm3 Absolute Neuts (auto) 11.0 H (1.3-6.7) K/mm3 Absolute Nucleated RBC 0.000 (0.0-0.012) K/mm3 Nucleated RBC % 0.0 (0.0-0.2) % PT 12.8 (11.1-14.7) Seconds INR 1.0 APTT 25.9 (22.3-36.8) Seconds D-Dimer < 0.27 (<0.48) ug/mL Sodium 140 (137-145) mmol/L Potassium 4.3 (3.4-5.0) mmol/L Chloride 107 (98-107) mmol/L Carbon Dioxide 27 (22-30) mmol/L Anion Gap 6 (4-12) mmol/L BUN 25 H D (7-17) mg/dL Creatinine 0.56 L (0.7-1.0) mg/dL Estim Creat Clear Calc 82 ml/min Estimated GFR > 60 (59 - ) Glucose 142 H (65-110) mg/dL Calcium 8.9 (8.4-10.2) mg/dL Discharge Plan Discharge Clinical Impression: Hematoma Patient Disposition: Home Condition: Stable Instructions: Hematoma (ED) Additional Instructions: Please follow-up with your primary care doctor. If you continue to have issues or if you start having swelling in your leg, shortness of breath or anything else concerning, please return to the emergency room. Patient Language: Malagasy Prescriptions: No Action Orencia (with maltose) 250 mg recon soln 1 ml IV MONTHLY cholecalciferol (vitamin D3) 50 mcg (2,000 unit) tablet,chewable 100 mcg PO DAILY potassium chloride 10 mEq tablet extended release 20 meq PO DAILY Qty: 30 3RF nystatin 100,000 unit/gram cream 1 applic topical BID Qty: 15 1RF ascorbic acid (vitamin C) 500 mg capsule PO .qd albuterol sulfate 90 mcg/actuation HFA aerosol inhaler 2 inh INHALATION Q4-6H Qty: 8.5 0RF (DME) lancets [Accu-Chek Fastclix Lancet Drum] [facility] [place] See Rx Instructions .ROUTE .MEDSUPPLY Qty: 100 1RF Rx Instructions: for use with blood glucose testing check daily (DME) blood-glucose meter [OneTouch Verio Flex meter] [facility] [place] See Rx Instructions .Route Qty: 1 0RF Rx Instructions: As directed metoprolol tartrate 25 mg tablet 25 mg PO .COMPLEX Qty: 135 2RF Rx Instructions: Take 1/2 tablet in AM and 1 tablet in PM fluticasone propionate [Flonase Allergy Relief] 50 mcg/actuation spray,suspension 2 spray INTRANASAL DAILY Qty: 48 2RF omeprazole 40 mg capsule,delayed release(DR/EC) See Rx Instructions .ROUTE .COMPLEX Qty: 90 0RF Dose Instruction: TAKE 1 CAPSULE BY MOUTH EVERY DAY Rx Instructions: TAKE 1 CAPSULE BY MOUTH EVERY DAY furosemide 20 mg tablet 20 mg PO QAM Qty: 90 0RF montelukast [Singulair] 10 mg tablet 10 mg PO DAILY Qty: 90 0RF amlodipine 5 mg tablet See Rx Instructions .ROUTE .COMPLEX Qty: 90 2RF Dose Instruction: TAKE 1 TABLET BY MOUTH EVERY DAY Rx Instructions: TAKE 1 TABLET BY MOUTH EVERY DAY (DME) OneTouch Verio test strips Strip See Rx Instructions .Route Qty: 100 2RF Rx Instructions: test glucose bid Follow-up/Referrals: Richard Lakhani MD [Primary Care Provider, Family Practice] - 2 Days
[2025-03-06 01:07] LABS: INR 1.0; Partial Thromboplastin Time 25.9 Seconds (22.3-36.8); Prothrombin Time 12.8 Seconds (11.1-14.7)
[2025-03-06 01:11] LABS: Anion Gap 6 mmol/L (4-12); Blood Urea Nitrogen 25 mg/dL (7-17); Calcium 8.9 mg/dL (8.4-10.2); Carbon Dioxide 27 mmol/L (22-30); Chloride 107 mmol/L (98-107); Estimated CRCL calculation 82 ml/min; Estimated Glomerular Filt Rate > 60; Glucose 142 mg/dL (65-110); Potassium 4.3 mmol/L (3.4-5.0); Sodium 140 mmol/L (137-145)
[2025-03-06 01:43] VITALS: BP 132/78; PULSE 68; RESP 18; O2SAT 97
== END 2025-03-06 01:44 | disposition home or self-care (01) ==
PROVIDERS: Emergency Provider Emergency Medicine; PCP Family Medicine
DX: M79.81 Nontraumatic hematoma of soft tissue (principal); I83.811 Varicose veins of right lower extremity with pain; I10 Essential (primary) hypertension; E11.9 Type 2 diabetes mellitus without complications; J45.909 Unspecified asthma, uncomplicated; K21.9 Gastro-esophageal reflux disease without esophagitis; M06.9 Rheumatoid arthritis, unspecified; Z90.49 Acquired absence of other specified parts of digestive tract; Z77.22 Contact with and (suspected) exposure to environmental tobacco smoke (acute) (chronic); Z79.899 Other long term (current) drug therapy
CPT/HCPCS: 36415; 80048; 85025; 85380; 85610; 85730; 99283

== ENCOUNTER 2025-03-09 09:18 | Outpatient (CLI) | payer MEDICARE, SELFPAY ==
--- NOTE | ~2025-03-09 | US_ITS ---
BILATERAL LOWER EXTREMITY VENOUS DUPLEX Clinical History: M79.604 - Pain in right leg . Comparison: 10/25/2023. Technique: Grayscale, color, duplex/spectral Doppler sonography bilateral lower extremities. Findings: Bilateral common femoral, femoral, popliteal, and calf veins compressible and color Doppler patent. Normal augmentation with distal compression. No internal echoes. IMPRESSION: 1. No DVT either leg. Reviewed, dictated and finalized at location R. IMPRESSION: 1. No DVT either leg.
--- OUTSIDE RECORDS SUMMARY | 2025-03-09 09:56 | XMS_ITS | Clinical Summary ---
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 Name Role Phone Unavailable Primary Care Provider Unavailabl e Social History Tobacco Use Types Packs/Day Years Used Date Smoking Tobacco: Never Assessed Comments Unknown Sex and Gender Information Value Date Recorded Sex Assigned at Not on file Legal Sex Female 8:31 PM CDT Gender Identity Not on file Sexual Orientation Not on file Plan of Treatment Health Maintenance Due Date Last Done Comments Colorectal Cancer Screening Colonoscopy (10 Years) 1953 Hepatitis C 1971 DTaP, Tdap and Td Vaccines ( 1 - Tdap) 1972 Mammogram Screening 1993 Pneumococcal Vaccine: 50+ Ye ars (1 of 1 - PCV) 2003 Zoster Vaccines (1 of 2) 2003 Dexa Scan (General) 2018 COVID-19 Vaccine ( - 2023-2 5 season) 2025 RSV Immunization or 60+ Years (1 - 1-dose 75+ series) 2028 Meningococcal B Vaccine Aged Out No l onger eligible based on patient's age to complete this topic Meningococcal Vaccine Aged Out No elliott glenny eligible based on patient's age to complete this topic RSV Immunizations Under 20 Months Aged Out No longer eligible based on patient's age to complete this topic
--- OUTSIDE RECORDS SUMMARY | 2025-03-09 09:57 | XMS_ITS | Clinical Summary ---
Author Organization [facility] Address [address] [place] [address] Care Team Providers Care Band Sewer Name Role Phone Jere Pelletier MD Unavailable Richard Lakhani MD Primary Care Provider Allergies Active Allergy Reactions Criticality Noted Date Comments Atorvastatin Muscle pain Medium 02/02/2021 Clindamycin Other (See comments) Low 04/17/2021 Sheikh her asophogus Fluticasone Furoate-Vilanterol Fatigue Low 02/02/2021 Iodinated Contrast Media Loratadine Medications guaiFENesin-codei ne (GUAITUSS AC) liquid 100-10 mg/5 mL TAKE 10ML BY MOUTH EVERY 4 - 6 HOURS NEEDED FOR COUGH 0 9 Active fluticasone propionate (FLONASE) 50 mcg/actuation nasal spray USE 2 SPRAYS IN EACH NOSTRIL TWICE DAILY FOR 5 DAYS, THEN USE 2 SPRAYS DAILY UNTIL SYMPTOMS RESOLVE 11 9 Active methylPREDNISolon e (MEDROL DOSEPACK) 4 mg Dosepack Take 1 tablet (4 mg total) by mouth as needed 0 9 Active abatacept (ORENCIA) 250 mg injection Infuse 40 mL (1,000 mg total) into a venous catheter every 30 (thirty) days Active albuterol HFA (PROVENTIL HFA,VENTOLIN HFA,PROAIR HFA) 90 mcg/actuation inhaler Inhale 2 puffs every 4 (four) hours as needed for wheezing 3 Inhaler 3 1 Active Flovent HFA 110 mcg/actuation inhalerIndication s:Mild persistent asthma, uncomplicated INHALE 1 PUFF 2 TIMES A DAY RINSE MOUTH WITH WATER AFTER USE. DO NOT SWALLOW. 12 each 5 2 Active omeprazole (PriLOSEC) 40 mg capsule Take by mouth daily 2 Active furosemide (LASIX) 20 mg tablet TAKE 1 TABLET BY MOUTH EVERY DAY 90 tablet 1 3 Active metoprolol tartrate (LOPRESSOR) 100 mg tablet Take 1 tablet (100 mg total) by mouth 2 (two) times a day 180 tablet 3 3 Active potassium chloride ER 10 mEq CR tablet TAKE 2 TABLETS BY MOUTH EVERY DAY NEEDED ALONG WITH FUROSEMIDE 180 tablet 1 3 Active amLODIPine (NORVASC) 10 mg tablet TAKE 1 TABLET BY MOUTH EVERY DAY 90 tablet 2 3 Active montelukast (SINGULAIR) 10 mg tabletIndications :Mild persistent asthma, uncomplicated Take 1 tablet (10 mg total) by mouth nightly Please advise pt to contact our office to schedule an appt. Thank you ! 90 tablet 4 Active telmisartan (MICARDIS) 80 mg tablet TAKE 1 TABLET BY MOUTH EVERY DAY 90 tablet 4 Active Active Problems Problem Noted Date Diagnosed Date Chronic rhinitis 07/05/2020 Overview (10/13/2020): 07/05/2020 absolute eosinophilia -600 03/05/2021 IgE -96.3 Assessment & Plan (09/17/2022 1:26 PM CDT): 07/05/2020 absolute eosinophilia -600 03/05/2021 IgE -96.3 Montelukast daily without anxiety or depression Fluticasone Uses cetirizine as needed Assessment & Plan (03/19/2022 11:48 AM CDT): 07/05/2020 absolute eosinophilia -600 03/05/2021 IgE -96.3 Montelukast 10 daily no anxiety depression Fluticasone Okay to take cetirizine Assessment & Plan (04/17/2021 11:23 AM CDT): 07/05/2020 absolute eosinophilia -600 03/05/2021 IgE -96.3 Likes montelukast with fluticasone Understand it is safe to use cetirizine as needed Assessment & Plan (10/13/2020 3:58 PM CDT): 07/05/2020 absolute eosinophilia -600 03/05/2021 IgE -96.3 Montelukast 10 daily Fluticasone Cetirizine 10 daily Assessment & Plan (07/05/2020 2:03 PM TRAINING REPRESENTATIVE): High eosinophils IgE level pending Montelukast 10 daily Fluticasone Recommend cetirizine Rheumatoid arthritis involvi ng multiple sites with positive rheumatoid factor 10/20/2019 Overview (07/05/2020): On therapy by Dr. Za Mcgowan Assessment & Plan (09/17/2022 1:27 PM CDT): On therapy by Dr. Za Mcgowan Assessment & Plan (03/19/2022 11:48 AM CDT): On therapy by Dr. Za Mcgowan History compression fractures 2020 -have primary care evaluate for osteoporosis discussed -take calcium and vitamin-D discussed Assessment & Plan (04/17/2021 11:24 AM CDT): On therapy by Dr. Za Mcgowan Recent x-rays in the emergency room shows she has compression fractures Discussed she has osteoporosis and needs treatment by her primary care doctor. If he is unable to provide treatment notify us to begin Fosamax and calcium Assessment & Plan (10/13/2020 3:59 PM CDT): On therapy by Dr. Za Quintanasteroid injection Kristen 250 Assessment & Plan (07/05/2020 1:55 PM TRAINING REPRESENTATIVE): On therapy by Dr. Za Quintanasteroid injection Kristen 250 Assessment & Plan (10/20/2019 11:16 AM CDT): Per patient's report COVID screening Mild persistent asthma, uncomplicated 10/20/2019 Overview (04/17/2021): 09/05/2002 methacholine challenge -27% fall FEV1 with 2.5 mg methacholine 07/05/2020 absolute eosinophilia -600 07/05/2020 IgE -96.3 08/26/2020 PFTs -mild restriction -no obstruction Severe reaction to Pfizer COVID-19 vaccination first shot, has not been attempted for further vaccinations Likes montelukast, no depression issues Prefers Flovent over Breo Assessment & Plan (09/17/2022 1:26 PM CDT): 09/05/2002 methacholine challenge -27% fall FEV1 with 2.5 mg methacholine 07/05/2020 absolute eosinophilia -600 07/05/2020 IgE -96.3 08/26/2020 PFTs -mild restriction -no obstruction Severe reaction to Pfizer COVID-19 vaccination first shot, has not been attempted for further vaccinations Likes montelukast, no depression issues Prefers Flovent over Breo Doing well on medical management Flovent 110, two daily Montelukast 10 daily no anxiety depression Albuterol p.r.n., even with the current exacerbation has only used it twice in the last three weeks Recent exacerbation on cefuroxime, improved with no indication for further antibiotics I will retire 12/14/2022 She plans to follow-up with Dr. John Mayes April 17 Notify us of any change in respiratory status Assessment & Plan (03/19/2022 11:47 AM CDT): 09/05/2002 methacholine challenge -27% fall FEV1 with 2.5 mg methacholine 07/05/2020 absolute eosinophilia -600 07/05/2020 IgE -96.3 08/26/2020 PFTs -mild restriction -no obstruction Severe reaction to Pfizer COVID-19 vaccination first shot, has not been attempted for further vaccinations Likes montelukast, no depression issues Prefers Flovent over Breo Currently stable -montelukast 10 daily no anxiety depression -Flovent 110, two daily -albuterol p.r.n. Re-evaluate September 2022 Flu shot April 17 Assessment & Plan (04/17/2021 11:27 AM CDT): 09/05/2002 methacholine challenge -27% fall FEV1 with 2.5 mg methacholine 07/05/2020 absolute eosinophilia -600 07/05/2020 IgE -96.3 08/26/2020 PFTs -mild restriction -no obstruction Severe reaction to Pfizer COVID-19 vaccination first shot, has not been attempted for further vaccinations Likes montelukast, no depression issues Prefers Flovent over Breo Currently well controlled with montelukast daily p.r.n. albuterol Re-evaluation one year No evidence of any changes in respiratory status Assessment & Plan (10/13/2020 3:55 PM CDT): 09/05/2002 methacholine challenge -27% fall FEV1 with 2.5 mg methacholine 07/05/2020 absolute eosinophilia -600 03/05/2021 IgE -96.3 Historically on montelukast 10 daily with p.r.n. Ventolin, no depression issues but not fully controlled Improved with the addition of Breo, home peak flow on her meter 350 on a consistent basis Notify us of any changes in breathing status Reassess six months Assessment & Plan (07/05/2020 1:52 PM TRAINING REPRESENTATIVE): 09/05/2002 methacholine challenge -27% fall FEV1 with 2.5 mg methacholine 2014 to 2018 absolute eosinophilia -200 to 400 every CBC No IgE on file Currently not controlled with Ventolin with montelukast 10 daily Begin Breo 100/25 daily She prefers not to take a Medrol dose pack, she has at home Not better in 10 days notify us Re-evaluation with PFTs in eight weeks IgE, eosinophil measurements today Get COVID-19 vaccine when available Assessment & Plan (10/20/2019 3:35 PM CDT): Overall Condition: New Acute Problem Treatment: Lab: Covid-19 and Imaging: Chest x-ray Follow up PRN Essential hypertension 05/13/2019 Assessment & Plan (07/25/2022 10:28 AM TRAINING REPRESENTATIVE): Blood pressure stable, however she has been having intermittent episodes of lightheadedness. We discussed checking her blood pressure at this time to assess for any hypotension. Premature beats 05/13/2019 Pure hypercholesterolemia 05/13/2019 Assessment & Plan (07/25/2022 10:26 AM TRAINING REPRESENTATIVE): Not currently taking pravastatin, has been increasing her diet and walnuts and would like to recheck her lipid panel, placed order for fasting lipid panel. Resolved Problems Problem Noted Date Diagnosed Date Resolved Date Pulmonary hypertension 05/13/201907/05 Overview (07/05/2020): 05/27/2019 echo RVSP 32 Assessment & Plan (07/05/2020 1:58 PM TRAINING REPRESENTATIVE): 05/27/2019 echo RVSP 32 Encounters Date Type Department Care Team Description 02/16/2025 2:16 PM CDT - 02/16/2025 11:59 PM CDT Hospital Encounter [address] [phone] Discharge Disposition: Discharge to home or self care 01/19/2025 9:32 AM CDT - 01/19/2025 11:59 PM CDT Hospital Encounter [facility] [address] [place] [address] Screening mammogram, encounter for Discharge Disposition: Discharge to home or self care 12/09/2024 3:33 PM CDT - 12/09/2024 11:59 PM CDT Hospital Encounter [id number] [place] [address] Discharge Disposition: Discharge to home or self care from Last 3 Months Immunizations Immunization Administration Dates Next Due Influenza, Trivalent, High D ose, Split, Preservative Free, Intramuscular 04/14/2019 Influenza, Trivalent, IM (MDV) 03/17/2017 Influenza, Trivalent, Preservative Free, Intramu scular 08/08/2016 Pneumococcal Conjugate PCV 13 04/14/2019 Tdap 01/01/2019 Surgical History Surgery Date Site/Laterality Comments GALLBLADDER SURGERY OVARIAN CYSTECTOMY Medical History Medical History Date Comments Hypertension GERD (gastroesophageal reflux disease) Asthma Family History Medical History Relation Name Comments Stroke Father Heart disease Maternal Grandfather Arrhythmia Mother Heart attack Mother's Brother Heart attack Paternal Grandfather Heart disease Paternal Grandfather Relation Name Status Comments Father Maternal Grandfather Mother Mother's Brother Paternal Grandfather Social History Tobacco Use Types Packs/Day Years Used Date Smoking Tobacco: Never Smokeless Tobacco: Never Tobacco Cessation:Counseling Given: Not Answered Alcohol Use Standard Drinks/Week Comments Never 0 (1 standard drink = 0.6 oz pur e alcohol) AUDIT-C Answer Date Recorded Frequency of Alcohol Consumption Never 11/13/2019 Average Number of Drinks Not on file 020 Frequency of Binge Drinking Not on file 10/16 Comments Unknown Sex and Gender Information Value Date Recorded Sex Assigned at Not on file Legal Sex Female 3:39 AM TRAINING REPRESENTATIVE Gender Identity Female 08/05/2019 12:08 AM TRAINING REPRESENTATIVE Sexual Orientation Straight 08/05/2019 12 :09 AM TRAINING REPRESENTATIVE Obstetrics History Last Filed Vital Signs Vital Sign Reading Time Taken Comments Blood Pressure 138/76 09/19/2022 2:06 PM CDT Pulse 95 09/19/2022 2:06 PM CDT Temperature 37.2 C (98.9 F) 10/20/2019 2:59 PM CDT Respiratory Rate 20 04/25/2019 4:36 PM TRAINING REPRESENTATIVE Oxygen Saturation 97% 09/19/2022 2:06 PM CDT Inhaled Oxygen Concentration - - Weight 122.7 kg (270 lb 6.4 oz) 09/19/2022 2:06 PM CDT Height 162.6 cm (5' 4.02) 09/19/2022 2:06 PM CD T Body Mass Index 46.39 09/19/2022 2:06 PM CDT Plan of Treatment Health Maintenance Due Date Last Done Comments Depression Screening 1953 Fall Risk Assessment 1955 Hepatitis C Screening 1955 Osteoporosis Screening-Bone Density Scan 1953 Hepatitis B Screening 1971 Zoster Vaccine (1 of 2) 2003 Well Visit 65+ 2018 Pneumococcal vaccine 65+ (2 of 2 - PPSV23, PCV20, or PCV21) 06/09/2019 04/14/2019 Influenza Vaccine (#1) 2025 9, 03/17/2017, 08/08/2016 Colon Cancer Screening-Colonoscopy 08/21/20252015 Breast Cancer Screening-Mammogram 01/19/2026 01/19/2025, 08/25/2015, 10/13/2012 DTaP/Tdap/Td Vaccine (2 - Td or Tdap) 01/01/2029 01/01/2019 Colon Cancer Screening-CT Colonography Discontinued 08/22/2015 Colon Cancer Screening-DNA Stool Discontinued 08/22/19 16 Colon Cancer Screening-FIT Discontinued 08/22/2015 Colon Cancer Screening-Sigmoidoscopy Discontinued 12/2015 Procedures Procedure Name Priority Date/Time Associated Diagnosis Comments EGFR Routine 02/16/2025 9:00 AM CDT DIFFERENTIAL AUTO Routine 02/16/2025 9:0 0 AM CDT CREATININE Routine 02/16/2025 9:00 AM CDT CBC WITH AUTO DIFFERENTIAL Routine 02/16/2025 9:00 AM CDT HEPATIC FUNCTION PANEL Routine 02/16/2025 9:00 AM CDT SCREENING MAMMOGRAM BILATERAL W SIMON Schedule Routine, Read Routine (OP Routine) 01/19/2025 9:51 AM CDT Screening mammogram, encounter for EGFR Routine 12/09/2024 10:57 AM CDT DIFFERENTIAL AUTO Routine 12/09/2024 10: 57 AM CDT HEPATIC FUNCTION PANEL Routine 12/09/2024 10:57 AM CDT TB TEST, QUANTIFERON GOLD Routine 12/09/2024 10:57 AM CDT CREATININE Routine 12/09/2024 10:57 AM CDT CBC WITH AUTO DIFFERENTIAL Routine 12/09/2024 10:57 AM CDT COLONOSCOPY REPORT 08/22/2015 from Last 3 Months or Most Recently Relevant to Health Maintenance Results * eGFR (02/16/2025 9:00 AM CDT) eGFR >90 >=60 mL/min/1. 73 m2 Comment: Interpretive Data Reference Interval Normal >/= 90 mL/min/1.73m2 Mildly decreased* 60 - 89 mL/min/1.73m2 Mildly to moderately decreased 45 - 59 mL/min/1.73m2 Moderately to severely decreased 30 - 44 mL/min/1.73m2 Severely decreased 15 - 29 mL/min/1.73m2 Kidney Failure < 15 mL/min/1.73m2 *Relative to young adult level Estimated glomerular filtration rate is determined by the 2020 CKD-EPI equation recommended by the National Kidney Foundation (A Unifying Approach to GFR Estimation: Recommendations of the NKF-ASK Task Force on Reassessing the Inclusion of Race in Diagnosing Kidney Disease, JASN 2020). The CKD-EPI equation should not be used for patients with unstable renal function and has not been validated in children and those over 70. Current interpretive data was last reviewed 2021. Blood 02/16/2025 9:00 AM CDT 02/16/2025 6:24 PM CDT us Juanito Spears MD LAB BLOOD ORDERABLES Fin al Result [facility] [address] [place] [address] * (ABNORMAL) Differential, auto (02/16/2025 9:00 AM CDT) Neutrophil abs 6.45 1.50 - 6.50 K/cumm Imm gran abs 0.01 0.00 - 0.10 K/cumm [facility] Lymphocyte abs 2.36 0.80 - 3.30 K/cumm [facility] Monocyte abs 1.02(H) 0.20 - 0.80 K/cumm [facility] Eosinophil abs 0.98(H) 0.00 - 0.50 K/cumm [facility] Basophil abs 0.07 0.00 - 0.10 K/cumm [facility] Neutrophil pct 59.2 % [facility] Comment: Interpretive Data Percent cell count reference ranges are not reported, since discordance with absolute values may lead to misinterpretation of CBC data. Current Interpretive Data was last revised on 2017. Imm gran pct 0.1 % [facility] Comment: Interpretive Data Percent cell count reference ranges are not reported, since discordance with absolute values may lead to misinterpretation of CBC data. Current Interpretive Data was last revised on 2017. Lymphocyte pct 21.7 % [facility] Comment: Interpretive Data Percent cell count reference ranges are not reported, since discordance with absolute values may lead to misinterpretation of CBC data. Current Interpretive Data was last revised on 2017. Monocyte pct 9.4 % [facility] Comment: Interpretive Data Percent cell count reference ranges are not reported, since discordance with absolute values may lead to misinterpretation of CBC data. Current Interpretive Data was last revised on 2017. Eosinophil pct 9.0 % [facility] Comment: Interpretive Data Percent cell count reference ranges are not reported, since discordance with absolute values may lead to misinterpretation of CBC data. Current Interpretive Data was last revised on 2017. Basophil pct 0.6 % [facility] Comment: Interpretive Data Percent cell count reference ranges are not reported, since discordance with absolute values may lead to misinterpretation of CBC data. Current Interpretive Data was last revised on 2017. Blood 02/16/2025 9:00 AM CDT 02/16/2025 6:23 PM CDT Juanito Spears MD LAB BLOOD ORDERABLES Fin al Result Performing Organization Address [facility]/ZIP Co de Phone Number [facility] [address] [place] [place] [address] * (ABNORMAL) CBC with auto differential (02/16/2025 9:00 AM CDT) WBC 10.89(H) 3.80 - 9.90 K/cumm Hgb 14.5 11.9 - 15.5 g/dL [facility] Hct 45.8(H) 35.6 - 45.5 % [facility] Plt 313 150 - 400 K/cumm [facility] MPV 11.4 9.1 - 12.3 fL [facility] RBC 4.78 3.90 - 5.20 M/cumm [facility] MCV 95.8 81.3 - 96.4 fL [facility] MCH 30.3 27.1 - 33.3 pg [facility] MCHC 31.7(L) 32.3 - 35.7 g/dL [facility] RDW CV 13.0 11.1 - 14.9 % [facility] RDW SD 46.5 35.7 - 48.1 fL [facility] NRBC abs 0.00 0.00 - 0.01 K/cumm [facility] Blood 02/16/2025 9:00 AM CDT 02/16/2025 6:23 PM CDT Juanito Spears MD LAB BLOOD ORDERABLES Fin al Result [facility] [address] Department of [employer] [place], [place] [id number] * (ABNORMAL) Creatinine (02/16/2025 9:00 AM CDT) Creatinine 0.57(L) 0.60 - 1.10 mg/dL Blood 02/16/2025 9:00 AM CDT 02/16/2025 6:24 PM CDT Juanito Spears MD LAB BLOOD ORDERABLES Fin al Result Performing Organization Address [facility] Co de Phone Number [facility] [address] [place] [address] * Hepatic function panel (02/16/2025 9:00 AM CDT) Bilirubin, total 0.3 0.1 - 1.2 mg/dL Bilirubin, direct <0.2 0.1 - 0.3 mg/dL [facility] Protein, pl 7.6 6.5 - 8.5 g/dL [facility] Albumin 4.2 3.5 - 5.0 g/dL [facility] Alk phos 107 40 - 130 Units/L [facility] ALT 22 7 - 45 Units/L [facility] AST 21 10 - 45 Units/L [facility] Blood 02/16/2025 9:00 AM CDT 02/16/2025 6:24 PM CDT Juanito Spears MD LAB BLOOD ORDERABLES Fin al Result Performing Organization Address [facility] Co de Phone Number [facility] [address] Department [place] [address] * Screening Mammogram Bilateral W Simon (01/19/2025 9:51 AM CDT) Anatomical Region Laterality Modality Breast Bilateral Mammography Impressions 01/25/2025 7:01 AM CDT Bilateral No evidence of malignancy in either breast. OVERALL BI-RADS FINAL ASSESSMENT: 1 - Negative RECOMMENDATION: Recommend bilateral annual screening mammography. Narrative 01/25/2025 7:01 AM CDT EXAMINATION: Screening Mammogram Bilateral W Simon: 01/19/2025 COMPARISON: Relevant prior studies available at the time of interpretation were reviewed, including the most recent mammogram on: 04/04/2017. TECHNIQUE: Mammography was performed with 2D and 3D digital breast tomosynthesis (DBT) images. CAD was utilized. BREAST PARENCHYMAL COMPOSITION: There are scattered areas of fibroglandular density. FINDINGS: Bilateral There is no suspicious mass, calcification, or architectural distortion in either breast. us Self Screening Mammogram IMG MAMMO PROCEDURES Fi nal Result * eGFR (12/09/2024 10:57 AM CDT) eGFR >90 >=60 mL/min/1. 73 m2 Comment: Interpretive Data Reference Interval Normal >/= 90 mL/min/1.73m2 Mildly decreased* 60 - 89 mL/min/1.73m2 Mildly to moderately decreased 45 - 59 mL/min/1.73m2 Moderately to severely decreased 30 - 44 mL/min/1.73m2 Severely decreased 15 - 29 mL/min/1.73m2 Kidney Failure < 15 mL/min/1.73m2 *Relative to young adult level Estimated glomerular filtration rate is determined by the 2020 CKD-EPI equation recommended by the National Kidney Foundation (A Unifying Approach to GFR Estimation: Recommendations of the NKF-ASK Task Force on Reassessing the Inclusion of Race in Diagnosing Kidney Disease, JASN 2020). The CKD-EPI equation should not be used for patients with unstable renal function and has not been validated in children and those over 70. Current interpretive data was last reviewed 2021. Blood 12/09/2024 10:5 7 AM CDT 12/09/2024 5:07 PM CDT Juanito Spears MD LAB BLOOD ORDERABLES Fin al Result [facility] [address] Department [place] [address] * (ABNORMAL) Differential, auto (12/09/2024 10:57 AM CDT) Neutrophil abs 6.62(H) 1.50 - 6.50 K/cumm Imm gran abs 0.02 0.00 - 0.10 K/cumm [facility] Lymphocyte abs 1.90 0.80 - 3.30 K/cumm [facility] Monocyte abs 0.77 0.20 - 0.80 K/cumm [facility] Eosinophil abs 0.42 0.00 - 0.50 K/cumm [facility] Basophil abs 0.05 0.00 - 0.10 K/cumm [facility] Neutrophil pct 67.7 % [facility] Comment: Interpretive Data Percent cell count reference ranges are not reported, since discordance with absolute values may lead to misinterpretation of CBC data. Current Interpretive Data was last revised on 2017. Imm gran pct 0.2 % [facility] Comment: Interpretive Data Percent cell count reference ranges are not reported, since discordance with absolute values may lead to misinterpretation of CBC data. Current Interpretive Data was last revised on 2017. Lymphocyte pct 19.4 % [facility] Comment: Interpretive Data Percent cell count reference ranges are not reported, since discordance with absolute values may lead to misinterpretation of CBC data. Current Interpretive Data was last revised on 2017. Monocyte pct 7.9 % [facility] Comment: Interpretive Data Percent cell count reference ranges are not reported, since discordance with absolute values may lead to misinterpretation of CBC data. Current Interpretive Data was last revised on 2017. Eosinophil pct 4.3 % [facility] Comment: Interpretive Data Percent cell count reference ranges are not reported, since discordance with absolute values may lead to misinterpretation of CBC data. Current Interpretive Data was last revised on 2017. Basophil pct 0.5 % [facility] Comment: Interpretive Data Percent cell count reference ranges are not reported, since discordance with absolute values may lead to misinterpretation of CBC data. Current Interpretive Data was last revised on 2017. Blood 12/09/2024 10:5 7 AM CDT 12/09/2024 3:49 PM CDT Juanito Spears MD LAB BLOOD ORDERABLES Fin al Result [facility] [address] Department [place] [address] * TB test, quantiferon gold (12/09/2024 10:57 AM CDT) [facility] Quantiferon TB Gold Negative Negative [place] [facility] Comment: No interferon-gamma response to M. tuberculosis antigens was detected. Latent infection with M. tuberculosis is unlikely. A single negative result does not exclude infection with M. tuberculosis. In patients at high risk for M.tuberculosis infection, a second test should be considered in accordance with the 2017 ATS/IDSA/CDC Clinical Practice Guidelines for Diagnosis of Tuberculosis in Adults and Children [Jose Martinn DM et. al. Clin. Infect. Dis. 2017;64(2):111-115]. The reference range for the 'TB1 Ag minus Nil Result' and 'TB2 Ag minus Nil Result' is an Interferon-gamma level <0.35 IU/mL. TB-Nil 0.00 IUnits/mL [facility] TB2-Nil 0.05 IUnits/mL [facility] Mitogen-Nil 9.96 IUnits/mL [facility] NIL 0.04 IUnits/mL [facility] Comment: Test Performed by: [place] [address] Smt Technician: June Kumar Ph.D.; CLIA# [id number] Blood 12/09/2024 10:5 7 AM CDT 12/09/2024 5:07 PM CDT us Juanito Spears MD LAB BLOOD ORDERABLES Fin al Result [facility] [address] [place] [address] [place] [facility] * (ABNORMAL) CBC with auto differential (12/09/2024 10:57 AM CDT) [facility] WBC 9.78 3.80 - 9.90 K/cumm Hgb 14.7 11.9 - 15.5 g/dL [facility] Hct 45.7(H) 35.6 - 45.5 % [facility] Plt 314 150 - 400 K/cumm [facility] MPV 11.1 9.1 - 12.3 fL [facility] RBC 4.76 3.90 - 5.20 M/cumm [facility] MCV 96.0 81.3 - 96.4 fL [facility] MCH 30.9 27.1 - 33.3 pg [facility] MCHC 32.2(L) 32.3 - 35.7 g/dL [facility] RDW CV 12.3 11.1 - 14.9 % [facility] RDW SD 43.8 35.7 - 48.1 fL [facility] NRBC abs 0.00 0.00 - 0.01 K/cumm [facility] Blood 12/09/2024 10:5 7 AM CDT 12/09/2024 3:49 PM CDT us Juanito Spears MD LAB BLOOD ORDERABLES Fin al Result Performing Organization Address [facility]/ZIP Co de Phone Number [facility] [address] Department [employer] [place], [place] [id number] * (ABNORMAL) Creatinine (12/09/2024 10:57 AM CDT) Creatinine 0.55(L) 0.60 - 1.10 mg/dL Blood 12/09/2024 10:5 7 AM CDT 12/09/2024 3:50 PM CDT us Juanito Spears MD LAB BLOOD ORDERABLES Fin al Result Performing Organization Address [facility]/ZIP Co de Phone Number [facility] [address] [place] [place] [address] * Hepatic function panel (12/09/2024 10:57 AM CDT) Bilirubin, total 0.3 0.1 - 1.2 mg/dL Bilirubin, direct <0.2 0.1 - 0.3 mg/dL [facility] Protein, pl 7.1 6.5 - 8.5 g/dL [facility] Albumin 4.1 3.5 - 5.0 g/dL [facility] Alk phos 106 40 - 130 Units/L [facility] ALT 20 7 - 45 Units/L [facility] AST 17 10 - 45 Units/L [facility] Blood 12/09/2024 10:5 7 AM CDT 12/09/2024 3:50 PM CDT Juanito Spears MD LAB BLOOD ORDERABLES Fin al Result [facility] [address] [place] [address] * COLONOSCOPY REPORT (08/22/2015) Anatomical Region Laterality Modality Other Narrative 08/22/2015 Ordered by an unspecified provider. us Historical Provider GI PROCEDURE ORDERABLES F inal Result from Last 3 Months or Most Recently Relevant to Health Maintenance Insurance MEDICARE COMMERCIAL GENERIC MEDICARE COMMERCIAL GENERIC [employer] MEDICARE [facility] Care Teams Band Sewer Relationship Specialty Start Date End Date Richard Lakhani MD PCP - General 08/12/20 Jere Pelletier MD Consulting Physician Cardiology 05/13/19
== END 2025-03-09 09:19 | disposition home or self-care (01) ==
PROVIDERS: PCP Family Medicine; Visit Provider Physician Assistant Medical
DX: M79.604 Pain in right leg (principal)
CPT/HCPCS: 93970